=== PATIENT | female | born 1945 ===

== ENCOUNTER → 2020-10-30 08:19 | Outpatient (REF) | payer MEDICARE, SELFPAY ==
--- NOTE | 2020-10-30 | NM_ITS ---
Exercise Myocardial perfusion study Indication: Shortness of breath to evaluate for myocardial ischemia Technique: The patient was brought in for an exercise perfusion study on 10/30/2020. Patient performed exercise as per Wallace protocol and was injected 35 mCi of sestamibi was given intravenously one target HR was achieved. Images were obtained using the SPECT gamma camera interlaced with the gating device. Images were obtained in supine position. Resting perfusion study was performed on 11/01/2020. Patient was administered 35 mCi of sestamibi intravenously at rest. Images were then obtained in supine position. Images obtained with and without CT attenuation. Total DLP 105 mGy-cm. Images were processed with the software and compared side to side in short axis, horizontal long axis and vertical long axis views. Findings: The stress perfusion study showed non attenuated images show mildly reduced uptake in the inferolateral and lateral as well as moderately reduced uptake in the distal anterior and apex of the LV myocardium. Attenuation corrected images show mildly to moderately reduced uptake in the apex and mildly reduced uptake in the distal inferolateral wall of the LV myocardium.. The gated study shows normal LV systolic function with calculated LVEF of greater than 70 %. LV cavity is normal in size. The gated study shows normal systolic wall thickening and contraction of all segments. There is no transient ischemic dilation. Resting study shows non attenuated images show minimal thinning of the apex of the LV myocardium.. Gating at rest reveals normal systolic wall motion with ejection fraction at greater than 70 %. The findings are consistent with mild intensity apical and distal inferolateral wall reversible defect consistent with ischemia.. NM/NM jaycob perf SPECT rest & str Impression: 1. Apical and distal inferolateral ischemia 2. Gated LVEF is greater than 70% 3. Transient ischemic dilatation not present Stress EKG is equivocal for ischemia
--- NOTE | 2020-10-30 08:30 | CA_ITS ---
Acquisition Time: 2020-10-30 09:36:46 Total Exercise Time: 00:06:28 Test Indications: SOB, HTN Medications: SEE CHART Protocol: JANICE Max HR: 125 BPM 86% of Pred: 145 BPM Max BP: 144/068 mmHG Max Work Load: 7.4 METS Exercise stress nuclear using Janice protocol, second stage held and manually incline cand speed changed. Total of 6 min 28 sec. METS 7.4, MAPHR up to 86 %. Pt tolerated well, denies any CP, some SOB. EKG with occasional PVC's. Mild scooped ST depressions seen in leads 2, 3, aVF and V5 and V6. suggestive of possible ischemia inferiorly and laterally, that normalizes in recovery. Nuclear images to follow. Normotensive response to exercise . Test reviewed with Dr. Chau. Referred By: Charles Jade Overread By: Clifton Paulson
== END ==
LOC: HO.CARD 08:19
PROVIDERS: Absent Provider Internal Medicine Cardiovascular Disease; PCP Internal Medicine; Visit Provider Internal Medicine
DX: R07.9 Chest pain, unspecified (principal); R06.02 Shortness of breath
CPT/HCPCS: 78452; 93017; A9500; J2785

== ENCOUNTER 2020-11-07 11:18 | Outpatient (REF) | payer MEDICARE, SELFPAY ==
[2020-11-07 12:36] LABS: Hematocrit 43.3 % (37-47); Hemoglobin 13.7 g/dl (12.0-16.0); Mean Corpuscular HGB Conc 31.6 g/dl (31.0-35.0); Mean Corpuscular Hemoglobin 29.6 pg (27.0-33.0); Mean Corpuscular Volume 93.5 fL (80-98); Platelet Count 261 X10*3/uL (160-400); Red Blood Count 4.63 X10*6/uL (4.20-5.50); Red Cell Distribution Width 13.7 % (11.0-16.0); White Blood Count 7.1 X10*3/uL (4.8-10.8)
[2020-11-07 12:47] LABS: INTERNATIONAL NORM RATIO 1.1 (0.9-1.1); Prothrombin Time 12.8 SEC (10.8-13.0)
[2020-11-07 13:17] LABS: Anion Gap 11 (12-20); Blood Urea Nitrogen 25 mg/dL (9-16); Calcium 10.2 mg/dL (8.4-10.2); Carbon Dioxide 35 mmol/L (22-29); Chloride 101 mmol/L (96-108); Estimated Glomerular Filt Rate 59; Potassium 4.1 mmol/l (3.3-5.1); Sodium 143 mmol/L (135-145)
[2020-11-07 13:37] LABS: Glucose Random 58 mg/dL (60-115)
== END 2020-11-07 11:19 | disposition home or self-care (01) ==
LOC: HO.LAB 11:18
PROVIDERS: PCP Internal Medicine; Visit Provider Internal Medicine Cardiovascular Disease
DX: R94.39 Abnormal result of other cardiovascular function study (principal)
CPT/HCPCS: 36415; 80048; 85027; 85610; 99202

== ENCOUNTER → 2020-12-04 10:18 | Outpatient (BNVA) | payer MEDICARE, SELFPAY | PROVIDERS: PCP Internal Medicine; Visit Provider Internal Medicine Cardiovascular Disease | DX: I10 Essential (primary) hypertension (principal) | CPT/HCPCS: 99212 ==

== ENCOUNTER → 2021-04-09 11:01 | Outpatient (BNVA) | payer MEDICARE, SELFPAY | PROVIDERS: PCP Internal Medicine; Visit Provider Internal Medicine Cardiovascular Disease | DX: I20.8 Other forms of angina pectoris (principal); I10 Essential (primary) hypertension; R94.39 Abnormal result of other cardiovascular function study | CPT/HCPCS: 99212 ==

== ENCOUNTER → 2021-08-13 10:07 | Outpatient (BNVA) | payer MEDICARE, SELFPAY | PROVIDERS: Referring Provider Internal Medicine; Visit Provider Internal Medicine Cardiovascular Disease | DX: I10 Essential (primary) hypertension (principal) | CPT/HCPCS: 93005; 99212 ==

== ENCOUNTER 2021-11-03 09:50 | Outpatient (REF) | payer MEDICARE, SELFPAY ==
--- NOTE | ~2021-11-03 | MM_ITS ---
EXAMINATION: MM SCREENING DIGITAL BREAST TOMOSYNTHESIS, BILATERAL CLINICAL INFORMATION: Screening. Asymptomatic. The lifetime risk of breast cancer based on the Tyrer-Cuzick Model is 3%. COMPARISON: Mammography: 07/30/2020, 07/27/2019, 06/17/2018 TECHNIQUE: Digital breast tomosynthesis is performed in both the craniocaudal and mediolateral oblique views along with computer-aided detection (CAD). Synthesized 2D images are generated from the tomosynthesis. FINDINGS: There are scattered areas of fibroglandular density (ACR BI-RADS breast composition Category b). There are no significant masses, abnormal calcifications, or other abnormalities. MM/MM tomosynthesis screening BI IMPRESSION: No mammographic evidence of malignancy. ASSESSMENT: BI-RADS 1: Negative RECOMMENDATION: Routine annual mammography screening. This patient's information was entered into a reminder system with a target due date for their next mammogram.
== END 2021-11-03 09:51 | disposition home or self-care (01) ==
LOC: HO.MAMMO 09:50
PROVIDERS: Absent Provider Obstetrics & Gynecology; PCP Internal Medicine; Visit Provider Internal Medicine
DX: Z12.31 Encounter for screening mammogram for malignant neoplasm of breast (principal)
CPT/HCPCS: 77063; 77067

== ENCOUNTER 2022-04-09 14:43 | Outpatient (REF) | payer MEDICARE, SELFPAY ==
--- NOTE | ~2022-04-09 | XR_ITS ---
EXAMINATION: XR CHEST CLINICAL INFORMATION: Shortness of breath, pneumonia. COMPARISON: None TECHNIQUE: 2 views of the chest were obtained. FINDINGS: No significant abnormality is noted involving the heart, lungs, mediastinum, bony thorax or soft tissues. XR/XR chest 2V IMPRESSION: No acute cardiopulmonary process.
== END 2022-04-09 14:44 | disposition home or self-care (01) ==
LOC: HO.HMGCX 14:43
PROVIDERS: PCP Internal Medicine; Visit Provider Internal Medicine
DX: R06.02 Shortness of breath (principal)
CPT/HCPCS: 71046

== ENCOUNTER 2022-07-13 08:33 | Outpatient (REF) | payer MEDICARE, SELFPAY ==
[2022-07-13 09:13] LABS: Estimated Average Glucose 120 mg/dL; Hemoglobin A1c % 5.8 %
== END 2022-07-13 08:34 | disposition home or self-care (01) ==
LOC: HO.LAB 08:33
PROVIDERS: PCP Internal Medicine; Visit Provider Internal Medicine
DX: E11.9 Type 2 diabetes mellitus without complications (principal)
CPT/HCPCS: 36415; 83036

== ENCOUNTER → 2022-08-26 11:12 | Outpatient (BNVA) | payer MEDICARE, SELFPAY | PROVIDERS: PCP Internal Medicine; Referring Provider Internal Medicine; Visit Provider Internal Medicine Cardiovascular Disease | DX: I10 Essential (primary) hypertension (principal) | CPT/HCPCS: 93005; 99212 ==

== ENCOUNTER 2022-10-29 10:47 | Outpatient (REF) | payer MEDICARE, SELFPAY ==
[2022-10-29 11:00] LABS: MANUAL DIFF FLAG NO
[2022-10-29 11:47] LABS: Hematocrit 39.4 % (37.0-47.0); Hemoglobin 12.2 g/dl (12.0-16.0); Red Blood Count 4.27 X10*6/uL (4.20-5.50); White Blood Count 5.9 X10*3/uL (4.8-10.8)
[2022-10-29 11:48] LABS: Basophils Percent Auto 0.7 % (0-2); Eosinophils Absolute Auto 0.1 X10*3/uL (0.0-0.4); Eosinophils Percent Auto 0.9 % (0-4); Imm Gran Abs Auto 0.05 X10*3/uL (0.00-0.03); Imm Gran Pct Auto 0.9 % (0.0-0.4); Lymphocytes Absolute Auto 1.7 X10*3/uL (1.2-4.9); Lymphocytes Percent Auto 28.1 % (20-40); Mean Corpuscular Hemoglobin 28.6 pg (27.0-33.0); Mean Corpuscular Volume 92.3 fL (80.0-98.0); Mean Platelet Volume 9.6 fL (9.4-12.3); Monocytes Percent Auto 16.3 % (2-11); Neutrophils Absolute Auto 3.1 x10*3/uL (2.0-8.3); Neutrophils Percent Auto 53.1 % (45-73); Platelet Count 238 X10*3/uL (160-400); Red Cell Distribution Width 15.3 % (11.0-16.0)
[2022-10-29 12:03] LABS: Estimated Average Glucose 120 mg/dL; Hemoglobin A1c % 5.8 %
[2022-10-29 13:50] LABS: Folate 15.4 ng/mL (> or = 4.0)
[2022-10-29 14:13] LABS: Thyroid Stimulating Hormone 3.01 uIU/mL (0.32-4.0)
[2022-10-29 14:56] LABS: Alanine Aminotransferase 14 U/L (0-31); Albumin Level 4.3 g/dL (3.5-5.0); Alkaline Phosphatase 92 U/L (39-117); Anion Gap 12 (12-20); Aspartate Amino Transferase 19 U/L (5-31); Bilirubin Total 0.6 mg/dL (0.0-1.0); Blood Urea Nitrogen 16 mg/dL (9-16); Calcium 9.7 mg/dL (8.4-10.2); Carbon Dioxide 33 mmol/L (22-29); Chloride 101 mmol/L (96-108); Cholesterol 185 mg/dL; Estimated Glomerular Filt Rate > 60; Glucose Fasting 64 mg/dL (60-99); HDL Cholesterol 67 mg/dL; LDL Cholesterol Calculated 102 mg/dl; Potassium 4.3 mmol/L (3.3-5.1); Sodium 142 mmol/L (135-145); Total Protein 7.5 g/dL (6.5-8.0); Triglycerides 82 mg/dL
== END 2022-10-29 10:48 | disposition home or self-care (01) ==
LOC: HO.LAB 10:47
PROVIDERS: PCP Internal Medicine; Visit Provider Internal Medicine
DX: R53.83 Other fatigue (principal); E11.9 Type 2 diabetes mellitus without complications; E78.5 Hyperlipidemia, unspecified
CPT/HCPCS: 36415; 80053; 80061; 82746; 83036; 84443; 85025

== ENCOUNTER 2023-04-15 06:43 | Outpatient (REF) | payer MEDICARE, SELFPAY ==
[2023-04-15 07:43] LABS: Estimated Average Glucose 114 mg/dL; Hemoglobin A1c % 5.6 %
== END 2023-04-15 06:44 | disposition home or self-care (01) ==
LOC: HO.LAB 06:43
PROVIDERS: PCP Internal Medicine; Visit Provider Internal Medicine
DX: E11.9 Type 2 diabetes mellitus without complications (principal); R53.83 Other fatigue; Z79.4 Long term (current) use of insulin
CPT/HCPCS: 36415; 83036

== ENCOUNTER 2023-04-19 09:08 | Outpatient (REF) | payer MEDICARE, SELFPAY ==
--- NOTE | ~2023-04-19 | MM_ITS ---
EXAMINATION: MM SCREENING DIGITAL BREAST TOMOSYNTHESIS, BILATERAL CLINICAL INFORMATION: Screening. Asymptomatic. The lifetime risk of breast cancer based on the Tyrer-Cuzick Model is 3%. COMPARISON: Mammography: 11/03/2021, 07/30/2020, 07/27/2019 TECHNIQUE: Digital breast tomosynthesis is performed in both the craniocaudal and mediolateral oblique views along with computer-aided detection (CAD). Synthesized 2D images are generated from the tomosynthesis. FINDINGS: There are scattered areas of fibroglandular density (ACR BI-RADS breast composition Category b). There are no significant masses, abnormal calcifications, or other abnormalities. Parenchymal pattern is similar to prior studies. There is no developing density or architectural abnormality. The axilla and skin contours are unremarkable. No significant changes. MM/MM tomosynthesis screening BI IMPRESSION: No mammographic evidence of malignancy. ASSESSMENT: BI-RADS 1: Negative RECOMMENDATION: Routine annual mammography screening. This patient's information was entered into a reminder system with a target due date for their next mammogram.
== END 2023-04-19 09:09 | disposition home or self-care (01) ==
LOC: HO.MAMMO 09:08
PROVIDERS: PCP Internal Medicine; Visit Provider Internal Medicine
DX: Z12.31 Encounter for screening mammogram for malignant neoplasm of breast (principal)
CPT/HCPCS: 77063; 77067

== ENCOUNTER → 2023-04-22 13:27 | Outpatient (BNVA) | payer MEDICARE, SELFPAY | PROVIDERS: PCP Internal Medicine; Referring Provider Internal Medicine; Visit Provider Nurse Practitioner Family | DX: I25.10 Atherosclerotic heart disease of native coronary artery without angina pectoris (principal); I10 Essential (primary) hypertension; E78.5 Hyperlipidemia, unspecified; Z98.890 Other specified postprocedural states | CPT/HCPCS: 93005; 99212 ==

== ENCOUNTER 2023-05-11 13:58 | Outpatient (REF) | payer MEDICARE, SELFPAY ==
--- NOTE | ~2023-05-11 | MM_ITS ---
EXAMINATION: BONE DENSITOMETRY CLINICAL INDICATION: Postmenopausal. COMPARISON: Baseline BD dated 07/06/2008. TECHNIQUE: Using a [employer] DXA System (software version: 13.1) manufactured by [employer] dual-energy x-ray absorptiometry was performed of the lumbar spine and left hip. The images are of good technical quality. Summary results are attached. FINDINGS: LEFT FEMUR, NECK: Current: BMD 1.070 g/cm2, Z-score 1.5, T-score 0.2, normal. Baseline: BMD 1.127 g/cm2. LEFT FEMUR, TOTAL: Current: BMD 1.288 g/cm2, Z-score 3.3, T-score 2.2, normal, 1.1% increase from baseline (<5% change is not significant). Baseline: BMD 1.274 g/cm2. AP SPINE L1-L4: There are multilevel degenerative changes which may cause overestimation of the lumbar bone mineral density. Current: BMD 1.765 g/cm2, Z-score 5.5, T-score 4.9, normal, 21.7% increase from baseline (<5% change is not significant). Baseline: BMD 1.450 g/cm2. IDENTIFIED RISK FACTORS: Height loss, menopause. HISTORY OF FRACTURE: None listed. MEDICATIONS: None listed. MM/XR DEXA axial skeleton IMPRESSION: 1. DIAGNOSIS: Normal bone density based on the lowest T-score value of 0.2 in the femoral neck applying World Health Organization criteria. 2. 10-YEAR FRACTURE RISK PREDICTION, FRAX: According to the guidelines, FRAX calculation should only be performed on patients in the osteopenia bone density category. Therefore, FRAX was not performed on this patient. 3. Treatment Recommendations: NOF guidelines recommend consideration for treatment in postmenopausal women and men age 50 and older presenting with the following: -A hip or vertebral (clinical or morphometric) fracture. -T-score less than or equal to -2.5 at the femoral neck or spine after appropriate evaluation to exclude secondary causes. -Low bone mass at the hip or spine and a 10-year fracture probability by FRAX of greater than or equal to 3% for hip fracture or greater than or equal to 20% for major osteoporotic fracture based on the [place] adapted WHO algorithm. 4. Other Recommendations: All treatment decisions require clinical judgment and consideration of individual patient factors, including patient preferences, comorbidities, previous drug use, risk factors not captured in the FRAX model (e.g. frailty, falls, vitamin D deficiency, increased bone turnover, interval significant decline in bone density) and possible under or overestimation of fracture risk by FRAX. FUTURE SCAN RECOMMENDATION: People with diagnosed cases of osteoporosis or at high risk for fracture should have regular bone mineral density tests. For patients eligible for Medicare, routine testing is allowed once every 2 years. The testing frequency can be increased to one year for patients who have rapidly progressing disease, those who are receiving or discontinuing medical therapy to restore bone mass, or have additional risk factors.
== END 2023-05-11 13:59 | disposition home or self-care (01) ==
LOC: HO.MAMMO 13:58
PROVIDERS: PCP Internal Medicine; Visit Provider Obstetrics & Gynecology
DX: Z13.820 Encounter for screening for osteoporosis (principal); Z78.0 Asymptomatic menopausal state
CPT/HCPCS: 77080

== ENCOUNTER 2023-07-30 08:08 | Outpatient (REF) | payer MEDICARE, SELFPAY ==
[2023-07-30 09:27] LABS: Estimated Average Glucose 126 mg/dL
== END 2023-07-30 08:09 | disposition home or self-care (01) ==
LOC: HO.LAB 08:08
PROVIDERS: PCP Internal Medicine; Visit Provider Internal Medicine
DX: E11.9 Type 2 diabetes mellitus without complications (principal)
CPT/HCPCS: 36415; 83036

== ENCOUNTER 2023-08-03 15:12 | Outpatient (REF) | payer MEDICARE, SELFPAY ==
--- NOTE | ~2023-08-03 | XR_ITS ---
EXAMINATION: XR KNEE AP STANDING CLINICAL INFORMATION: Bilateral knee pain COMPARISON: None available. TECHNIQUE: AP bilateral standing view of the knees was obtained. Lateral views of bilateral knees. FINDINGS: Right knee: No significant joint effusion. Small quadriceps enthesophyte. Mild medial joint space narrowing. Small tricompartmental osteophytes. Left knee: No significant joint effusion. Moderate to marked medial joint space narrowing. Small tricompartmental osteophytes. 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
== END 2023-08-03 15:13 | disposition home or self-care (01) ==
LOC: HO.HMGCX 15:12
PROVIDERS: PCP Internal Medicine; Visit Provider Internal Medicine
DX: R53.83 Other fatigue (principal); M25.561 Pain in right knee; M25.562 Pain in left knee; E03.9 Hypothyroidism, unspecified; R63.5 Abnormal weight gain; M79.18 Myalgia, other site
CPT/HCPCS: 36415; 73565; 82306

== ENCOUNTER 2023-10-18 08:05 | Outpatient (REF) | payer MEDICARE, SELFPAY ==
[2023-10-18 08:21] LABS: MANUAL DIFF FLAG NO
[2023-10-18 08:37] LABS: Basophils Percent Auto 0.3 % (0-2); Eosinophils Absolute Auto 0.1 X10*3/uL (0.0-0.4); Eosinophils Percent Auto 1.7 % (0-4); Hematocrit 39.3 % (37.0-47.0); Hemoglobin 12.2 g/dl (12.0-16.0); Imm Gran Abs Auto 0.03 X10*3/uL (0.00-0.03); Imm Gran Pct Auto 0.5 % (0.0-0.4); Lymphocytes Absolute Auto 1.5 X10*3/uL (1.2-4.9); Lymphocytes Percent Auto 25.6 % (20-40); Mean Corpuscular Hemoglobin 28.7 pg (27.0-33.0); Mean Corpuscular Volume 92.5 fL (80.0-98.0); Mean Platelet Volume 9.7 fL (9.4-12.3); Monocytes Absolute Auto 1.1 X10*3/uL (0.1-1.2); Monocytes Percent Auto 18.1 % (2-11); Neutrophils Absolute Auto 3.1 x10*3/uL (2.0-8.3); Neutrophils Percent Auto 53.8 % (45-73); Platelet Count 239 X10*3/uL (160-400); Red Blood Count 4.25 X10*6/uL (4.20-5.50); White Blood Count 5.8 X10*3/uL (4.8-10.8)
[2023-10-18 09:19] LABS: Alanine Aminotransferase 12 U/L (0-31); Albumin Level 4.2 g/dL (3.5-5.0); Alkaline Phosphatase 89 U/L (39-117); Anion Gap 14 (12-20); Aspartate Amino Transferase 18 U/L (5-31); Bilirubin Total 0.5 mg/dL (0.0-1.0); Blood Urea Nitrogen 17 mg/dL (9-16); Calcium 9.9 mg/dL (8.4-10.2); Carbon Dioxide 31 mmol/L (22-29); Chloride 103 mmol/L (96-108); Cholesterol 166 mg/dL (<200); Estimated Glomerular Filt Rate > 60; Glucose Fasting 115 mg/dL (60-99); HDL Cholesterol 60 mg/dL (>40); LDL Cholesterol Calculated 91 mg/dL (<100); Potassium 4.6 mmol/L (3.3-5.1); Sodium 143 mmol/L (135-145); Total Protein 7.7 g/dL (6.5-8.0); Triglycerides 77 mg/dL (<150)
[2023-10-18 09:28] LABS: Thyroid Stimulating Hormone 4.33 uIU/mL (0.32-4.0)
== END 2023-10-18 08:06 | disposition home or self-care (01) ==
LOC: HO.LAB 08:05
PROVIDERS: PCP Internal Medicine; Visit Provider Internal Medicine
DX: R53.83 Other fatigue (principal); E78.5 Hyperlipidemia, unspecified; E11.9 Type 2 diabetes mellitus without complications
CPT/HCPCS: 36415; 80053; 80061; 84439; 84443; 85025

== ENCOUNTER 2023-11-02 11:37 | Outpatient (REF) | payer MEDICARE, SELFPAY ==
[2023-11-02 12:32] LABS: Estimated Average Glucose 134 mg/dL; Hemoglobin A1c % 6.3 % (<6.0)
== END 2023-11-02 11:38 | disposition home or self-care (01) ==
LOC: HO.LAB 11:37
PROVIDERS: PCP Internal Medicine; Visit Provider Internal Medicine
DX: E11.9 Type 2 diabetes mellitus without complications (principal)
CPT/HCPCS: 36415; 83036

== ENCOUNTER 2024-04-20 09:24 | Outpatient (REF) | payer MEDICARE, SELFPAY ==
[2024-04-20 10:23] LABS: Estimated Average Glucose 123 mg/dL; Hemoglobin A1c % 5.9 % (<6.0)
== END 2024-04-20 09:25 | disposition home or self-care (01) ==
LOC: HO.MAMMO 09:24
PROVIDERS: PCP Internal Medicine; Visit Provider Internal Medicine
DX: Z12.31 Encounter for screening mammogram for malignant neoplasm of breast (principal); E11.9 Type 2 diabetes mellitus without complications
CPT/HCPCS: 36415; 77063; 77067; 83036

== ENCOUNTER → 2024-04-20 10:00 | Outpatient (BNV) | payer MEDICARE, SELFPAY | PROVIDERS: PCP Internal Medicine; Visit Provider Radiology Diagnostic Radiology | DX: Z12.31 Encounter for screening mammogram for malignant neoplasm of breast (principal) | CPT/HCPCS: 77063; 77067 ==

== ENCOUNTER 2024-04-24 13:59 | Outpatient (AMB) | payer MEDICARE, SELFPAY ==
[2024-04-24 14:04] VITALS: BP 120/64; PULSE 82; BMI 46.1
--- NOTE | 2024-04-24 14:04 | A.OFFVIS_ITS ---
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 She was seen for chest discomfort, shortness of breath and abnormal nuclear stress test. Cardiac catheterization was performed on 11/22/2020 from the right radial artery access. She had mid LAD 30% stenosis at proximal RCA had 30% stenosis. Her LVEDP was normal. She has elevated BP and she was advised to increase her amlodipine to 5 mg. She said she was getting dizzy and decided to cut back on her amlodipine to 2.5 mg daily. on follow-up today, Blood pressure control is good. She is denying any chest discomfort. She has shortness of breath and fatigue which happen with activity. I think this is deconditioning. 04/24/2024: She returns for follow-up. Blood pressure is well controlled. No chest pains. She again is complaining of fatigue. She is saying that with minimal tired and fatigued. We discussed about sleep study last time but it appears she has not done sleep study. [facility] Medical History (Updated 04/24/24 @ 14:26 by Hermes Fine MD) Abnormal stress test Surgical History History of cardiac cath H/O knee surgery Family History Mother No problems noted. Father No problems noted. Social History Alcohol intake: current Alcohol intake frequency: holidays/special occasions only Patient Tobacco Use Status: Never used Tobacco Review of Systems Const Denies chills, Denies fatigue, Denies fever(s), Denies frequent falls, Denies weakness, Denies weight gain and Denies weight loss ENT Denies dizziness Card Denies chest pain, Denies leg edema, Denies lightheadedness, Denies palpitations, Denies dyspnea and Denies dyspnea on exertion Resp Denies cough, Denies dyspnea and Denies dyspnea on exertion GI Denies hematochezia Musc Denies abnormal gait, Denies muscle weakness, Denies numbness, Denies radiating pain into limb and Denies tingling Neuro Denies abnormal gait, Denies dizziness, Denies frequent falls, Denies numbness, Denies tingling and Denies weakness Endo Denies fatigue and Denies palpitations Physical Exam Vital Signs: BMI result Body Mass Index 46.1 GENERAL APPEARANCE: in no acute distress, overweight. NECK/THYROID: no carotid bruit, no jugular venous distention. SKIN: no suspicious lesions, warm and dry. HEART: no murmurs, regular rate and rhythm, S1, S2 normal. LUNGS: clear to auscultation bilaterally. ABDOMEN: normal, bowel sounds present, soft, nontender, nondistended. EXTREMITIES: no clubbing, cyanosis, or edema. PERIPHERAL PULSES: equal. NEUROLOGIC: nonfocal, alert and oriented. PSYCH: mood/affect full range. Office Procedures EKG Details: Sinus rhythm with first-degree AV block, heart rate 82 beats per minute interval 212 milliseconds, can not rule out anterior infarctw voltage, QTC 418 m illiseconds. [id number], Complete Assessment & Plan Assessment & Plan (1) Hypertension: Code(s): I10 - Essential (primary) hypertension Category: Medical (2) Coronary atherosclerosis: Code(s): I25.10 - Atherosclerotic heart disease of eek coronary artery without angina pectoris Category: Medical (3) Sleep disorder breathing: Code(s): G47.30 - Sleep apnea, unspecified Category: Medical Plan Pleasant 78-year-old female who is here forollow-up. She has background of hypertension. Blood pressure is well controlled currently on amlodipine 2.5 mg and triamterene-hydrochlorothiazide combination. She has mild coronary artery disease based on previous cardiac catheterization. She is complaining of fatigue and shortness of breath. I have discussed with her to do a sleep study to rule out sleep apnea. We will arrange this for her. Thank you for allowing me to participate in the care of your patient. Please feel free to contact me if you have any questions. Orders: Orders RT PSG in-lab sleep study Today Coding Level of Care Code Est Pt Level 4 (54960) Diagnoses Hypertension I10 Coronary atherosclerosis I25.10 Sleep disorder breathing G47.30 CPT Codes EKG - CPT: 91865-[id number], Complete ([id number])
== END 2024-04-24 14:28 | disposition home or self-care (01) ==
PROVIDERS: PCP Internal Medicine; Visit Provider Internal Medicine Cardiovascular Disease
DX: I10 Essential (primary) hypertension (principal); I25.10 Atherosclerotic heart disease of native coronary artery without angina pectoris; G47.30 Sleep apnea, unspecified
CPT/HCPCS: 93010; 99214

== ENCOUNTER → 2024-04-24 13:59 | Outpatient (BNVA) | payer MEDICARE, SELFPAY | PROVIDERS: PCP Internal Medicine; Visit Provider Internal Medicine Cardiovascular Disease | DX: I25.10 Atherosclerotic heart disease of native coronary artery without angina pectoris (principal); I10 Essential (primary) hypertension; G47.30 Sleep apnea, unspecified | CPT/HCPCS: 93005; 99212 ==

== ENCOUNTER → 2024-05-01 19:30 | Outpatient (REF) | payer MEDICARE, SELFPAY | LOC: HO.SL 19:30 | PROVIDERS: PCP Internal Medicine; Visit Provider Internal Medicine Cardiovascular Disease | DX: G47.30 Sleep apnea, unspecified (principal) | CPT/HCPCS: 95810 ==

== ENCOUNTER → 2024-05-01 22:42 | Outpatient (BNV) | payer MEDICARE, SELFPAY | PROVIDERS: PCP Internal Medicine; Visit Provider Psychiatry & Neurology Neurology | DX: R06.83 Snoring (principal) | CPT/HCPCS: 95810 ==

== ENCOUNTER 2024-08-08 07:29 | Outpatient (REF) | payer MEDICARE, SELFPAY ==
[2024-08-08 08:36] LABS: Estimated Average Glucose 120 mg/dL; Hemoglobin A1C 120.7202 umol/L; Hemoglobin A1c % 5.8 % (<6.0); Total Hemoglobin (HGBA1C) 3010.2274 umol/L
== END 2024-08-08 07:30 | disposition home or self-care (01) ==
LOC: HO.LAB 07:29
PROVIDERS: PCP Internal Medicine; Visit Provider Internal Medicine
DX: E11.9 Type 2 diabetes mellitus without complications (principal)
CPT/HCPCS: 36415; 83036

== ENCOUNTER → 2024-10-02 11:05 | Outpatient (BNVA) | payer MEDICARE, SELFPAY | PROVIDERS: PCP Internal Medicine; Visit Provider Internal Medicine Cardiovascular Disease | DX: I10 Essential (primary) hypertension (principal); R06.00 Dyspnea, unspecified | CPT/HCPCS: 99212 ==

== ENCOUNTER 2024-10-02 11:08 | Outpatient (AMB) | payer MEDICARE, SELFPAY ==
[2024-10-02 11:08] VITALS: BP 130/62; PULSE 92; BMI 46.5
--- NOTE | 2024-10-02 11:08 | MHC.OFFVIS ---
Vital Signs 10/02/24 11:08 Height 5 ft 2 in Weight 254 lb 6.615 oz BMI 46.5 BP 130/62 Blood Pressure Location Lt brachial Position Sitting Pulse 92 Pulse Source Pulse Oximeter Intake Visit Reasons: 6 mthf/up Intake Note: 6 mth f/up Disability Services Coordinator Required: No Accompanied by: Self / Same As Patient Allergies Amoxicillin Allergy (Unknown, Uncoded 04/22/23 13:33) rash Medication List - Last Reconciled 10/02/24 by Hermes Fine MD amlodipine 2.5 mg PO DAILY aspirin (Adult Aspirin Regimen) 81 mg PO DAILY atorvastatin 40 mg PO DAILY cyclosporine 0.05% (Restasis) 1 drp ophthalmic (eye) BID glipizide 5 mg PO BID levothyroxine 100 mcg PO DAILY metformin 500 mg PO BID pioglitazone 30 mg PO DAILY triamterene-hydrochlorothiazid 37.5-25 mg 1 cap PO DAILY HPI Comments Details: 78-year-old female here for follow-up. She was seen for chest discomfort, shortness of breath and abnormal nuclear stress test. Cardiac catheterization was performed on 11/22/2020 from the right radial artery access. She had mid LAD 30% stenosis at proximal RCA had 30% stenosis. Her LVEDP was normal. She has elevated BP and she was advised to increase her amlodipine to 5 mg. She said she was getting dizzy and decided to cut back on her amlodipine to 2.5 mg daily. on follow-up today, Blood pressure control is good. She is denying any chest discomfort. She has shortness of breath and fatigue which happen with activity. I think this is deconditioning. 04/24/2024: She returns for follow-up. Blood pressure is well controlled. No chest pains. She again is complaining of fatigue. She is saying that with minimal tired and fatigued. We discussed about sleep study last time but it appears she has not done sleep study. 10/02/2024: She is here for follow-up. She has been prescribed Ozempic by her primary care physician. She has not started it yet. She is saying there was a long side effect profile that she read. We discussed about weight loss and beneficial effects for her being a diabetic and having significant dyspnea and fatigue. [facility] Medical History (Updated 10/02/24 @ 11:27 by Hermes Fine MD) Abnormal stress test Surgical History History of cardiac cath H/O knee surgery Family History Mother No problems noted. Father No problems noted. Social History Alcohol intake: current Alcohol intake frequency: holidays/special occasions only Patient Tobacco Use Status: Never used Tobacco Review of Systems Const Denies chills, Denies fatigue, Denies fever(s), Denies frequent falls, Denies weakness, Denies weight gain and Denies weight loss ENT Denies dizziness Card Denies chest pain, Denies leg edema, Denies lightheadedness, Denies palpitations, Denies dyspnea and Denies dyspnea on exertion Resp Denies cough, Denies dyspnea and Denies dyspnea on exertion GI Denies hematochezia Musc Denies abnormal gait, Denies muscle weakness, Denies numbness, Denies radiating pain into limb and Denies tingling Neuro Denies abnormal gait, Denies dizziness, Denies frequent falls, Denies numbness, Denies tingling and Denies weakness Endo Denies fatigue and Denies palpitations Physical Exam Vital Signs: Last Vital Signs Pulse 92 10/02/24 11:08 BP 130/62 10/02/24 11:08 BMI result Body Mass Index 46.5 GENERAL APPEARANCE: in no acute distress, obese. NECK/THYROID: no carotid bruit, no jugular venous distention. SKIN: no suspicious lesions, warm and dry. HEART: no murmurs, regular rate and rhythm, S1, S2 normal. LUNGS: clear to auscultation bilaterally. ABDOMEN: normal, bowel sounds present, soft, nontender, nondistended. EXTREMITIES: no clubbing, cyanosis, or edema. PERIPHERAL PULSES: equal. NEUROLOGIC: nonfocal, alert and oriented. PSYCH: mood/affect full range. Assessment & Plan Assessment & Plan (1) Hypertension: Code(s): I10 - Essential (primary) hypertension Category: Medical (2) Dyspnea: Code(s): R06.00 - Dyspnea, unspecified Category: Medical Plan Pleasant 78 year female who is here for follow-up. Blood pressure is well controlled currently. She will continue same medicines. She has dyspnea which is multifactorial. Definitely deconditioning and being overweight is playing a big role in that. She has been prescribed Ozempic by her primary care physician. I have advised her to try it because if she loses some weight that will definitely help her dyspnea and fatigue. Ozempic also has some long-term beneficial cardiovascular effects which are being observed in clinical trials. She will see us back in 6 months. Thank you for allowing me to participate in the care of your patient. Please feel free to contact me if you have any questions. Coding Level of Care Code Est Pt Level 4 (13078) Diagnoses Hypertension I10 Dyspnea R06.00
== END 2024-10-02 11:29 | disposition home or self-care (01) ==
PROVIDERS: PCP Internal Medicine; Visit Provider Internal Medicine Cardiovascular Disease
DX: I10 Essential (primary) hypertension (principal); R06.00 Dyspnea, unspecified
CPT/HCPCS: 99214

== ENCOUNTER 2025-03-07 07:39 | Outpatient (REF) | payer MEDICARE, SELFPAY ==
--- OUTSIDE RECORDS SUMMARY | 2025-03-07 07:43 | XMS_ITS ---
Author Organization [facility] Address [address] [place] [address] [place] [address] Care Team Providers Care Switchboard Troubleshooter Name Role Phone Yasmany PAZ, Charles Primary Care Provider Unavailab Bessie Pro Unavailable [phone] Encounters Encounter Location Date Provider Diagnosis [facility] [address] [place] [address] 02/26/2025 Bessie More Plan Of Treatment Next Appt Details Provider Name:Bessie capone, 04/06/2025 02:00:00 PM, [address] [facility], [address] [facility], [place], [address], Progress Notes * Pamela CRONIN CDOB:[birth year] (79 yo F)Acc No.[id number]:02/26/2025 Progress Note Patient:Pamela NOWAK Provider:?Bessie Moer DPM :1945???Age:79 Y???Sex:Female D ate:02/26/2025 Address:[address] [place], [place] [id number] Pcp:Charles Jade MD Subjective: * Chief Complaints: * ??? * Medical History:? Objective: * Vitals:? Assessment: Plan: * Treatment: * Images: * The named appointment provid er may or may not be the originator of this progress note, and it is not deemed complete until electronically signed by the appointment provider. Sign off status: Pending * Provider:?Bessie More DPM Date:?0 02/26/2025 Generated for Jurgen ramsey/Valorie/Lotusitting on:?03/07/2025 07:43 AM EDT
--- OUTSIDE RECORDS SUMMARY | 2025-03-07 07:43 | XMS_ITS | Patient Health Record ---
[facility] Address [address] [facility] [place] [address] Care Team Providers Care Assembler Body Name Role Phone Cahrles Jade MD Primary Care Provider Unavailab Bessie Pro Unavailable [phone] SantosClaytonDenny Unavailable [phone] Allergies Allergen (clinical drug ingredient) Drug/Non Drug Allergy documented on EMR Reaction Allergy Type Onset Date Status amoxicillin Amoxicillin rash Drug Allergy Act brandon Results Component Value Reference Range Notes HEMOGLOBIN A1C (GLYCOHEMOGLO BIN) Reviewed date:09/07/2024 12:35:55 PM Interpretation: Performing Lab: Notes/Report: TOTAL HEMOGLOBIN (HGBA1C) 5.1 Reason For Referral No Information Medications Medication SIG (Take, Route, Frequency, Duration) Notes Start Date End Date Status Pioglitazone HCl Act brandon Travatan Z 0.004 % INSTILL ONE DROP IN BOTH EYES DAILY Ophthalmic for 90 Not-Taking Clindamycin HCl 150 MG 2 capsules Orally every 8 hrs for 5 day(s) 04/19/2018 Not-Taking Timolol Hemihydrate Not-Taking Extra-Depth Diabetic Shoes with 3 Pair Custom heat-molded multi-density innersoles . for 1 year . Dx: for . 04/04/2015 Unkno wn Levothyroxine Sodium 75 MCG 1 tablet on an empty stomach in the morning Orally Once a day for 30 day(s) Active glipiZIDE Active Atorvastatin Calcium 40 MG 1 tablet Oral ly Once a day for 30 day(s) Active aspirin baby Active Triamterene-HCTZ 37.5-25 MG 1 capsule in the morning Orally Once a day for 30 day(s) Active Restasis Active Metformin & Diet Manage Prod Active Immunizations Vaccine Route Administration Date Status Comme nts COVID-19 Moderna Vaccine Unknown 01/23/2021 Administere d 1st 12/27/2020 Influenza Unknown 11/05/2017 Refused Influenza Unknown 08/04/2018 Refused Influenza Unknown 07/08/2020 Refused Influenza Unknown 07/16/2022 Administered Influenza Unknown 07/16/2023 Administered Social History Tobacco Use: Social History Observation Description Date Details (start date - stop date) Former Smoker NA - NA Tobacco Use/Smoking Question Answer Notes Are you a: former smoker Additional Findings: Tobacco Non-User Current no n-smoker Alcohol Screen Question Answer Notes Did you have a drink containing alcohol in the p ast year? No Points 0 Interpretation Negative Tobacco use other than smoking: Question Answer Notes Are you an other tobacco user? No Problems Problem Type SNOMED Code ICD Code Onset Dates Problem Status W/U Status Risk Notes Problem Tinea unguium (524636695) Tinea unguium (B35.1) Active confirmed Problem Polyneuropathy due to type 2 diabetes mellitus (595292345) Type 2 diabetes mellitus with diabetic polyneuropathy (E11.42) Active confirmed Problem Peripheral venous insufficiency (60299994) Venous insufficiency of both lower extremities (I87.2) Active confirmed Problem 32179027 Venous insufficiency (I87.2) Active confirmed Problem 736664795 -Arthritis of right foot (M19.071) Active confirmed Vital Signs Blood pressure diastolic 80 mm Hg 05/22/2024 Height 5 ft 3 in in 09/07/2024 Blood pressure systolic 120 mm Hg 05/22/2024 Weight 249 lbs 09/07/2024 BMI 44.1 kg/m2 09/07/2024 Encounters Encounter Location Date Provider Diagnosis [facility] [address] [address] 05/22/2024 Denny Graham Tinea unguium B35.1 ; Pain in right toe(s) M79.674 ; Pain in left toe(s) M79.675 ; Type 2 diabetes mellitus with diabetic polyneuropathy E11.42 ; Metatarsalgia, left foot M77.42 ; Xerosis cutis L85.3 ; Venous insufficiency I87.2 ; Venous insufficiency of both lower extremities I87.2 and Ingrowing nail L60.[address] [facility] [address] 09/07/2024 Denny Graham Tinea unguium B35.1 ; Pain in right toe(s) M79.674 ; Pain in left toe(s) M79.675 ; Type 2 diabetes mellitus with diabetic polyneuropathy E11.42 ; Metatarsalgia, left foot M77.42 ; Xerosis cutis L85.3 ; Venous insufficiency I87.2 ; Venous insufficiency of both lower extremities I87.2 and Ingrowing nail L60.0 [facility] [address] [address] 05/22/2024 Denny Graham [facility] [address] 02/22/2025 Bessie More Assessments Encounter Date Diagnosis (ICD Code) Assessment Notes Treatment Notes Treatment Clinical Notes Section Notes 05/22/2024 Tinea unguium (ICD-10 - B35.1) 05/22/2024 Pain in right toe(s) (ICD-10 - M79.674) 09/07/2024 Tinea unguium (ICD-10 - B35.1) 09/07/2024 Pain in right toe(s) (ICD-10 - M79.674) 05/22/2024 Pain in left toe(s) (ICD-10 - M79.675) 09/07/2024 Pain in left toe(s) (ICD-10 - M79.675) 05/22/2024 Type 2 diabetes mellitus with diabetic polyneuropathy (ICD-10 - E11.42) 09/07/2024 Type 2 diabetes mellitus with diabetic polyneuropathy (ICD-10 - E11.42) 05/22/2024 Metatarsalgia, left foot (ICD-10 - M77.42) 05/22/2024 Xerosis cutis (ICD-10 - L85.3) 09/07/2024 Metatarsalgia, left foot (ICD-10 - M77.42) 05/22/2024 Venous insufficiency (ICD-10 - I87.2) 09/07/2024 Xerosis cutis (ICD-10 - L85.3) 05/22/2024 Venous insufficiency of both lower extremities (ICD-10 - I87.2) 09/07/2024 Venous insufficiency (ICD-10 - I87.2) 09/07/2024 Venous insufficiency of both lower extremities (ICD-10 - I87.2) 05/22/2024 Ingrowing nail (ICD-10 - L60.0) 09/07/2024 Ingrowing nail (ICD-10 - L60.0) Plan Of Treatment Pending Test Test Name Order Date Glucose Fasting 04/04/2015 92369-GKJLJMW NAIL, 6 OR MORE 06/13/2015 03914-OBKBEWW NAIL, 6 OR MORE 04/04/2015 67903-THNAUNQ NAIL, 6 OR MORE 08/15/2015 05855-ZLCYTLL NAIL, 6 OR MORE 11/05/2015 47188-CAKNZYM NAIL, 6 OR MORE 02/24/2016 10472-LDUDHTU NAIL, 6 OR MORE 05/04/2016 52709-MFWDPMB NAIL, 6 OR MORE 08/05/2016 59289-VRJQNRQ NAIL, 6 OR MORE 02/23/2017 84559-AIAUYHP NAIL, 6 OR MORE 11/03/2016 65347-SRLPCHZ NAIL, 6 OR MORE 05/28/2017 20758-EEHXRSZ NAIL, 6 OR MORE 08/20/2017 53365-ZCNQTVC NAIL, 6 OR MORE 11/05/2017 51650-LBAXWMT NAIL, 6 OR MORE 03/07/2018 33555-PANFKKX NAIL, 6 OR MORE 10/31/2018 34041-OXZIRQY NAIL, 6 OR MORE 05/26/2018 91723-XAIZCKS NAIL, 6 OR MORE 08/04/2018 39560-Lwirhvbv Plate 03/07/2018 33204-Yurbmwba Plate 05/28/2017 97412-Evtwbkie Plate 11/05/2017 01310-Dqkxehaw Plate 08/20/2017 86975-Pdgwozav Plate 11/03/2016 02612-Sqtkrpkd Plate 02/23/2017 48402-Riizglbv Plate 08/05/2016 46664-Wopuelbl Plate 05/04/2016 58164-Aklyjvrr Plate 02/24/2016 60794-Efdrxajv Plate 08/15/2015 86159-Xrmxzbjy Plate 09/01/2013 13566-Stlhnasy Plate 06/13/2015 87715-Qkixsesr Plate Each Additional 11/2014 60294- Debride <25 sq cm 04/18/2015 37647- Debride <25 sq cm 09/21/2013 08542 I&D ABSCESS- SIMPLE,SINGLE 015 16390 I&D ABSCESS- SIMPLE,SINGLE 013 09784 I&D ABSCESS- SIMPLE,SINGLE 017 16583-ZTXW SKIN LESIONS, 2 TO 4 11/05/20 17 34196-PRIA SKIN LESIONS, 2 TO 4 11/03/20 16 04689-VHCA SKIN LESIONS, 2 TO 4 08/20/20 17 68317-RRSB SKIN LESIONS, 2 TO 4 05/04/20 16 17701-EIBD SKIN LESIONS, 2 TO 4 08/05/20 16 33515-RFAI SKIN LESIONS, 2 TO 4 02/24/20 17 00710-BDOF SKIN LESIONS, 2 TO 4 05/28/20 17 96102-AOTD SKIN LESIONS, 2 TO 4 08/15/20 15 07669-EVHB SKIN LESIONS, 2 TO 4 02/24/20 16 95214-TQYT SKIN LESIONS, 2 TO 4 11/05/20 15 72877-LLXL SKIN LESIONS, 2 TO 4 04/04/20 15 66729-VJXH SKIN LESIONS, 2 TO 4 06/13/20 15 23051-ZPGP SKIN LESIONS, 2 TO 4 03/07/20 18 57902-WWFZ SKIN LESIONS, 2 TO 4 05/26/20 18 56548-MGVE SKIN LESIONS, 2 TO 4 03/06/20 19 86609-XNRY SKIN LESIONS, 2 TO 4 06/07/20 19 39717-ZOZV SKIN LESIONS, 2 TO 4 09/13/20 19 41693-RZLR SKIN LESIONS, 2 TO 4 04/04/20 20 61892-YQOC SKIN LESIONS, 2 TO 4 07/08/20 20 87648-DHOY SKIN LESIONS, 2 TO 4 10/21/20 20 85801-PXUX SKIN LESIONS, 2 TO 4 03/31/20 21 62888-EFFS SKIN LESIONS, 2 TO 4 07/08/20 21 32563-NPOY SKIN LESIONS, 2 TO 4 10/21/20 21 07603-IUUG SKIN LESIONS, 2 TO 4 10/31/20 18 66897-GCDT SKIN LESIONS, 2 TO 4 08/04/20 18 32234-RJWFTUJN OF HEMATOMA/FLUID 018 Next Appt Details Provider Name:Bessie Zamora estelita, 04/06/2025 02:00:00 PM, [address] [facility], [address], [place], [address], Insurance Providers Payer Name Payer Address Payer Phone Subscriber Number Group Number Insured Name Patient Relationship to Insured Coverage Start Date Coverage End Date Medicare National Govt Sv[employer] [address] [place] [address] [id number] Pamela Cronin Self - patient is the insured 2 [employer] [address] [place] [address] [id number] Moy Cronin Spouse - patient is the spouse of the insured Medical (General) History Medical History History ICD Code chicken pox cholesterol Diabetic type ll high blood pressure measles mumps thyroid disorder Arthritis Surgical History Surgery Date(Month/Year) knee surgery, left 2010 cataract surgery bilateral 2017
--- OUTSIDE RECORDS SUMMARY | 2025-03-07 07:43 | XMS_ITS ---
[facility] Address [address] [facility] [place] [address] Care Team Providers Care Provisioning Analyst Name Role Phone Charles Jade MD Primary Care Provider Unavailab Bessie Pro Unavailable [phone] Denny Graham Unavailable [phone] Allergies Allergen (clinical drug ingredient) Drug/Non Drug Allergy documented on EMR Reaction Allergy Type Onset Date Status amoxicillin Amoxicillin rash Drug Allergy Act brandon REASON FOR VISIT Painful nail(s) aggrevated by shoes and causing difficulty standing/walking. Medications Medication SIG (Take, Route, Frequency, Duration) Notes Start Date End Date Status Pioglitazone HCl Act brandon Levothyroxine Sodium 75 MCG 1 tablet on an empty stomach in the morning Orally Once a day for 30 day(s) Active glipiZIDE Active Atorvastatin Calcium 40 MG 1 tablet Oral ly Once a day for 30 day(s) Active aspirin baby Active Travatan Z 0.004 % INSTILL ONE DROP IN BOTH EYES DAILY Ophthalmic for 90 Not-Taking Clindamycin HCl 150 MG 2 capsules Orally every 8 hrs for 5 day(s) 04/19/2018 Not-Taking Timolol Hemihydrate Not-Taking Extra-Depth Diabetic Shoes with 3 Pair Custom heat-molded multi-density innersoles . for 1 year . Dx: for . 04/04/2015 Unkno wn Triamterene-HCTZ 37.5-25 MG 1 capsule in the morning Orally Once a day for 30 day(s) Active Restasis Active Metformin & Diet Manage Prod Active Social History Tobacco Use: Social History Observation [...] Are you an other tobacco user? No Vital Signs Height 5 ft 3 in in 09/07/2024 Weight 249 lbs 09/07/2024 BMI 44.1 kg/m2 09/07/2024 Encounters Encounter Location Date Provider Diagnosis [facility] [place] [address] [place] [address] 09/07/2024 Denny Graham Tinea unguium B35.1 ; Pain in right toe(s) M79.674 ; Pain in left toe(s) M79.675 ; Type 2 diabetes mellitus with diabetic polyneuropathy E11.42 ; Metatarsalgia, left foot M77.42 ; Xerosis cutis L85.3 ; Venous insufficiency I87.2 ; Venous insufficiency of both lower extremities I87.2 and Ingrowing nail L60.0 Assessments Encounter Date Diagnosis (ICD Code) Assessment Notes Treatment Notes Treatment Clinical Notes Section Notes 09/07/2024 Tinea unguium (ICD-10 - B35.1) 09/07/2024 Pain in right toe(s) (ICD-10 - M79.674) 09/07/2024 Pain in left toe(s) (ICD-10 - M79.675) 09/07/2024 Type 2 diabetes mellitus with diabetic polyneuropathy (ICD-10 - E11.42) 09/07/2024 Metatarsalgia, left foot (ICD-10 - M77.42) 09/07/2024 Xerosis cutis (ICD-10 - L85.3) 09/07/2024 Venous insufficiency (ICD-10 - I87.2) 09/07/2024 Venous insufficiency of both lower extremities (ICD-10 - I87.2) 09/07/2024 Ingrowing nail (ICD-10 - L60.0) Plan Of Treatment Next Appt Details Follow Up: 3 Months, Reason: Provider Name:Bessie capone, 04/06/2025 02:00:00 PM, [address] [facility], [address], [place], [address], Procedure Notes * Category Sub-Category Detail Notes Debride Nail 6-10 Nail debridement Nail debridem ent performed extensively to reduce/remove overall nail length and girth, subungual debris, and necrotic tissue, by manual and electrical means with use of a nail nipper and/or dremel, to more viable healthy nail plate or bed tissue 6-10. Silver nitrate used for any petechial bleeding as necessary. Patient chooses, no pharmaceutical tx (39587) Keratoma Treatment Parring or Cutting o f Benign Hyperkeratotic Lesion(s) 32162 (2-4 Lesions) - The Benign hyperkeratotic lesions, as described above were pared, and/or cut utilizing a sterile #15 blade, tissue nippers, and/or dremel Progress Notes * Pamela CRONIN CDOB:[birth year] (78 yo F)Acc No.[id number]:09/07/2024 Progress Note Patient:?Pamela Cronin Provider:?Denny Graham DPM :1945???Age:78 Y???Sex:Female D ate:09/07/2024 Address:[address] [place] [address], [id number] Pcp:Charles Jade MD Subjective: * Chief Complaints: * ??? Painful nail(s) aggrevat ed by shoes and causing difficulty standing/walking. * HPI: ???Painful Nails:?Pt States Last PCP Visit:?Date:?08/15/2024 * ROS:?General/Constitutional:?Nausea?denies.?Vomiting?denies.?Hunger Thirst?denies.?Loss appetite?denies.?Chills?denies.?Fatigue?denies.?Fever?denies.?Night Sweats?denies.?Unexplained weight loss?denies.?Unexplained weight gain?denies.?HEENTM:?Dentures?denies.?Dizziness?denies.?Glasses/contacts?admits.?Retinopathy?de nies.?Blurred/double vision?denies.?TMJ?denies.?Discharge/drainage?denies.?Implants?denies.?Sore throat?denies.?Dental implants?denies.?Hard of hearing ?denies.?Difficulty chewing/swallowing/speaking?denies.?Nose bleeds?denies.?Sore mouth?denies.?Respiratory:?On Oxygen?denies.?Pneumonia/pleurisy?denies.?Bronchitis?denies.?Emphysema?denies.?C oughing?denies.?Cough blood?denies.?Shortness of breath?denies.?Wheezing?denies.?Cardiovascular:?Pacemaker?denies.?MVP?denies.?WPW?denies.?CHF?denies.?Heart attack?denies.?Septal defect?denies.?Rapid beat?denies.?Chest pain ?denies.?Atrial Fib.?denies.?Murmur/Palpitations?admits.?Gastrointestinal:?Hemorrhoids?denies.?Stomach/Abdominal pain?denies.?Dark blood stool?denies.?Irritable bowel ?denies.?Constipation?denies.?Diarrhea?denies.?Hematology:?Swelling?admits.?Clots?denies.?Varicose Veins?denies.?Bruising?denies.?Bleeding problem?denies.?Genitourinary:?Blood urine?denies.?Frequent/Painfu/urination/bladder control?denies.?Kidney stones?denies.?Infection (UTI)?denies.?Nephropathy?denies.?sex trans dis (STD)?denies.?Prostate?denies.?Musculoskeletal:?Hammertoes?denies.?Bunions?denies.?Back Pain?denies.?Muscle Cramps/ Resting?denies.?Muscle cramps / walking?denies.?Generalized aches and pains?admits.?Weakness?denies.?Integ.:?Hoang?denies.?Scars?denies.?Corns/calluses?denies.?Ingrown nails?denies.?Painful nails?denies.?Open Sores?denies.?Rashes?denies.?Neurologic:?Difficulty sleeping?denies.?Brain disorder?denies.?Numbness?denies.?Balance trouble?denies.?Confusion?denies.?Fainting/blackouts?denies.?Tingling?denies.?Tr emors?denies.? * Medical History:? * Surgical History:?knee surge ry, left 2011cataract surgery bilateral 2016 * Hospitalization/Major Diagno stic Procedure:?Denies Past Hospitalization * Family History:?Mother: dece ased, diagnosed with Family history of arthritis.?Father: .?Spouse: alive.? * Social History:?Tobacco Use:?Tobacco Use/Smoking?Are you a:?former smoker ?Additional Findings: Tobacco Non-User?Current non-smoker ?Tobacco use other than smoking?Are you an other tobacco user??No ???Drugs/Alcohol:?Drugs?Have you used drugs other than those for medical reasons in the past 12 months??No ?Alcohol Screen?Did you have a drink containing alcohol in the past year??No ?Points?0 ?Interpretation?Negative ???Miscellaneous:?Caffeine: yes, 2-3 cups per day. ?no Children, none. ?Exercise: yes, walking, exercise. ?Living with: spouse. ?Marital status: . 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 * Medications:?TakingPioglitaz one HCl aspirin baby Atorvastatin Calcium 40 MG Tablet 1 tablet Orally Once a dayglipiZIDE Levothyroxine Sodium 75 MCG Tablet 1 tablet on an empty stomach in the morning Orally Once a dayMetformin & Diet Manage Prod Restasis Triamterene-HCTZ 37.5-25 MG Capsule 1 capsule in the morning Orally Once a dayTaking Pioglitazone HCl Taking aspirin baby Taking Atorvastatin Calcium 40 MG Tablet 1 tablet Orally Once a dayTaking glipiZIDE Taking Levothyroxine Sodium 75 MCG Tablet 1 tablet on an empty stomach in the morning Orally Once a dayTaking Metformin & Diet Manage Prod Taking Restasis Taking Triamterene-HCTZ 37.5-25 MG Capsule 1 capsule in the morning Orally Once a dayNot-Taking/PRNTimolol Hemihydrate Clindamycin HCl 150 MG Capsule 2 capsules Orally every 8 hrsTravatan Z 0.004 % Solution INSTILL ONE DROP IN BOTH EYES DAILY Ophthalmic Not-Taking/PRN Timolol Hemihydrate Not-Taking/PRN Clindamycin HCl 150 MG Capsule 2 capsules Orally every 8 hrsNot-Taking/PRN Travatan Z 0.004 % Solution INSTILL ONE DROP IN BOTH EYES DAILY Ophthalmic UnknownExtra- Depth Diabetic Shoes with 3 Pair Custom heat-molded multi-density innersoles . . for 1 year . Dx:Medication List reviewed and reconciled with the patientUnknown Extra-Depth Diabetic Shoes with 3 Pair Custom heat-molded multi-density innersoles . . for 1 year . Dx:Medication List reviewed and reconciled with the patient * Allergies:?Amoxicillin: rash - Allergyyes[Allergies Verified] Objective: * Vitals:?Ht: 5 ft 3 in, Wt: 2 49, BMI: 44.1, Shoe size: 8.5-9, BS: 100, Wt-k.94 kg. * ???Past Orders: ???Lab:HEMOGLOBIN A1C (GLYCO HEMOGLOBIN) (Order Date - 08/15/2024) (Collection Date - 08/15/2024) ? Value Reference Range ?TOTAL HEMOGLOBIN (HGBA1C) 5.1 * Examination: ???Neurological: ?SENSORY:? Neurological exam demonstrates, reduced light touch sensation, reduced vibration lower extremity, B/L, at Forefoot, at Midfoot, 5.07 monofilament test performed at plantar aspects of 5 varied sites per foot shows sensation, reduced , B/L, Neurological exam demonstrates pop of varicose veins both aspects of whitney ankles and lower legs --right more painful than left.?General Examination: ?GENERAL APPEARANCE:?pleasant, alert, well nourished, well developed, well hydrated, with good attention to hygene/body habitus, and in no acute distress.?ORIENTED:?person,place, and time.?FOOT EXAM:?Lower Extremity Neurological Exam performed:?Yes ?Visual exam of foot performed:?Yes ?Date?03/17/2022 ?Sensory testing performed:?sensations diminished ?Pedal pulse taking performed:?1+?Vascular: ?DP PULSES(B):? 11/18, B/L.?PT PULSES(B):? 11/18, B/L.?CAPILLARY FILL TIME:?3 secs. per digit. B/L.?TROPHIC CONDITION-TEXTURE/ELASTICITY/TURGOR/HAIR GROWTH(B):?normal, B/L.?TEMPERTURE GRADIENT(C):?normal, B/L.?PIGMENTATION:?normal, B/L.?EDEMA(C):? 2/4, B/L, Ankle(s).?TELANGECTASIA:? moderate.?VARICOSITIES:? present, moderate, painful, B/L.?Nails: ?NAILS are:?Elongated, overgrown, dystrophic, greater than 3mm thick, discolored and friable with crumbly malodorous subungual debris, with dull to no pain on palpation due to neuropathy, 1-5 B/L.?Dermatologic: ?SKIN FINDINGS:? Skin shows sign(s) of, dryness, scaling, in a stocking fashion, no fissure(s) present, B/L, Skin exam reveals Keratotic lesion(s) located at, Plantar, Heel(s), B/L .?Ophthalmology Referral: ?DIABETES EYE EXAM?Diabetic Retinopathy Screening:?Yes 08/07 ?Findings of Diabetic Eye Exam:?no retinopathy?Ingrown Nail: ?INSPECTION:? Reveals nail incurvation, pain on palpation, groove hypertrophy, groove ischemia, Lateral nail border, TA.? Assessment: * Assessment: 1.?Tinea unguium - B35.1 (Pr imary)?2.?Pain in right toe(s) - M79.674?3.?Pain in left toe(s) - M79.675?4.?Type 2 diabetes mellitus with diabetic polyneuropathy - E11.42?5.?Metatarsalgia, left foot - M77.42?6.?Xerosis cutis - L85.3?7.?Venous insufficiency - I87.2?8.?Venous insufficiency of both lower extremities - I87.2?9.?Ingrowing nail - L60.0 (Primary)? Plan: * Treatment: * Procedures:?Debride Nail 6-10:?Nail debridement?Nail debridement performed extensively to reduce/remove overall nail length and girth, subungual debris, and necrotic tissue, by manual and electrical means with use of a nail nipper and/or dremel, to more viable healthy nail plate or bed tissue 6-10. Silver nitrate used for any petechial bleeding as necessary. Patient chooses, no pharmaceutical tx (72433).?Keratoma Treatment:?Parring or Cutting of Benign Hyperkeratotic Lesion(s)?09662 (2-4 Lesions) - The Benign hyperkeratotic lesions, as described above were pared, and/or cut utilizing a sterile #15 blade, tissue nippers, and/or dremel.? * Procedure Codes:?11716 DEBRI DE NAIL, 6 OR MORE, Modifiers: XS 52196 TRIM SKIN LESIONS, 2 TO 4, Modifiers: XS * Follow Up:?3 Months * Images: * Sign off status: Completed true * Provider:?Denny Graham DPM Date:? 024 Generated for Printi ng/Faxing/eTransmitting on:?03/07/2025 07:43 AM EDT History and Physical Notes * HPI (History of Present Illness) Category Sub-Category Detail Notes Category Not es Painful Nails Pt States Last PCP Visit: Date:: 08/15/2024 Examination Category Sub-Category Detail Notes Category Not es Ingrown Nail INSPECTION: Reveals nail inc urvation, pain on palpation, groove hypertrophy, groove ischemia, Lateral nail border, TA Neurological SENSORY: Neurological exa m demonstrates, reduced light touch sensation, reduced vibration lower extremity, B/L, at Forefoot, at Midfoot, 5.07 monofilament test performed at plantar aspects of 5 varied sites per foot shows sensation, reduced , B/L, Neurological exam demonstrates pop of varicose veins both aspects of whitney ankles and lower legs --right more painful than left Dermatologic SKIN FINDINGS: Skin shows sign( s) of, dryness, scaling, in a stocking fashion, no fissure(s) present, B/L, Skin exam reveals Keratotic lesion(s) located at, Plantar, Heel(s), B/L General Examination GENERAL APPEARANCE: pleasant , alert, well nourished, well developed, well hydrated, with good attention to hygene/body habitus, and in no acute distress FOOT EXAM: Lower Extremity Neurological Exa m performed:: Yes Visual exam of foot performed:: Yes Date: 03/17/2022 Sensory testing performed:: sensations d iminished Pedal pulse taking performed:: 1+ ORIENTED: person,place, and ti me Ophthalmology Referral DIABETES EYE EXAM Diabetic Reti nopathy Screening:: Yes 08/07 Findings of Diabetic Eye Exam:: no retin opathy Vascular DP PULSES (B): 1/4, B/L PT PULSES (B): 1/4, B/L CAPILLARY FILL TIME: 3 secs. per digit. B/L TEMPERTURE GRADIENT (C): normal, B/L TROPHIC CONDITION-TEXTURE/EL ASTICITY/TURGOR/HAIR GROWTH (B): normal, B/L EDEMA (C): 2/4, B/L, Ankle(s) TELANGECTASIA: moderate VARICOSITIES: present, moderate, p ainful, B/L PIGMENTATION: normal, B/L Nails NAILS are: Elongated, overg rown, dystrophic, greater than 3mm thick, discolored and friable with crumbly malodorous subungual debris, with dull to no pain on palpation due to neuropathy, 1-5 B/L
--- OUTSIDE RECORDS SUMMARY | 2025-03-07 07:44 | XMS_ITS ---
Author Organization [facility] Address [address] [facility] [place] [address] Care Team Providers Care Tripe Cooker Name Role Phone Charles Jade MD Primary Care Provider Unavailab Bessie Pro Unavailable [phone] REASON FOR VISIT RS 02/26 appt Encounters Encounter Location Date Provider Diagnosis [address] [place] [address] 02/22/2025 Bessie More Plan Of Treatment Next Appt Details Provider Name:Bessie capone, 04/06/2025 02:00:00 PM, [address] [facility] [facility] [address], [place], [address], Progress Notes * Pamela CRONIN CDOB:[birth year] (79 yo F)Acc No.[id number]:02/22/2025 Patient:?Pamela CRONIN :1945???Age:79 Y???Sex:Female Address:[address] [place] [address] [place] [address] * true * Date:? Generated for Printi ng/Faxing/eTransmitting on:?03/07/2025 07:43 AM EDT
[2025-03-07 08:21] LABS: Hematocrit 35.7 % (37.0-47.0); Hemoglobin 11.1 g/dl (12.0-16.0); Mean Corpuscular HGB Conc 31.1 g/dl (31.0-35.0); Mean Corpuscular Hemoglobin 28.5 pg (27.0-33.0); Mean Corpuscular Volume 91.8 fL (80.0-98.0); Mean Platelet Volume 9.5 fL (9.4-12.3); Platelet Count 187 X10*3/uL (160-400); Red Blood Count 3.89 X10*6/uL (4.20-5.50); Red Cell Distribution Width 15.7 % (11.0-16.0); White Blood Count 4.3 X10*3/uL (4.8-10.8)
[2025-03-07 08:27] LABS: Estimated Average Glucose 114 mg/dL; Hemoglobin A1C 110.9731 umol/L; Hemoglobin A1c % 5.6 % (<6.0); Total Hemoglobin (HGBA1C) 2909.8677 umol/L
[2025-03-07 08:49] LABS: Alanine Aminotransferase 16 U/L (0-31); Albumin Level 4.1 g/dL (3.5-5.0); Alkaline Phosphatase 69 U/L (39-117); Anion Gap 10 (12-20); Aspartate Amino Transferase 23 U/L (5-31); Bilirubin Total 0.5 mg/dL (0.0-1.0); Blood Urea Nitrogen 22 mg/dL (9-16); Calcium 9.3 mg/dL (8.4-10.2); Carbon Dioxide 32 mmol/L (22-29); Chloride 104 mmol/L (96-108); Cholesterol 164 mg/dL (<200); Estimated Glomerular Filt Rate > 60; Glucose Random 93 mg/dL (60-115); HDL Cholesterol 64 mg/dL (>40); LDL Cholesterol Calculated 87 mg/dL (<100); Potassium 4.2 mmol/L (3.3-5.1); Sodium 142 mmol/L (135-145); Total Protein 7.2 g/dL (6.5-8.0); Triglycerides 66 mg/dL (<150)
[2025-03-07 12:45] LABS: Band Neutrophils Percent 1 % (3-5); Lymphocytes Absolute Manual 1.1 X10*3/uL (1.2-4.9); Lymphocytes Percent Manual 26 % (20-40); Metamyelocytes Absolute 0.2 X10*3/uL; Metamyelocytes Percent 4 %; Monocytes Absolute Manual 0.6 X10*3/uL (0.1-1.2); Monocytes Percent Manual 13 % (2-11); Myelocytes Absolute 0.2 X10*/uL; Myelocytes Percent 5 %; Neutrophils Absolute Manual 2.2 X10*3/uL (2.0-8.3); Neutrophils Percent Manual 51 % (45-73); Platelet Estimate NORMAL (NORMAL); Platelet Morphology Comment NORMAL; RBC Morphology NORMAL
[2025-03-08 11:27] LABS: C Reactive Protein 0.17 mg/dL (< or = 0.50); Iron 62 mcg/dL (30-160); Percent Iron Saturation 19 % (15-50); Total Iron Binding Capacity 325 mcg/dL (228-428); Unsaturated Iron Binding 263 ug/dL
[2025-03-08 11:41] LABS: Ferritin 38 ng/mL (10-250)
== END 2025-03-07 07:40 | disposition home or self-care (01) ==
LOC: HO.LAB 07:39
PROVIDERS: PCP Internal Medicine; Visit Provider Internal Medicine
DX: D64.9 Anemia, unspecified (principal); R53.83 Other fatigue; E78.5 Hyperlipidemia, unspecified; E11.8 Type 2 diabetes mellitus with unspecified complications
CPT/HCPCS: 36415; 80053; 80061; 82728; 83036; 83540; 85007; 85025; 85027; 86140

== ENCOUNTER 2025-04-13 08:45 | Outpatient (REF) | payer MEDICARE, SELFPAY ==
--- OUTSIDE RECORDS SUMMARY | 2025-04-13 08:48 | XMS_ITS ---
Author Organization [facility] Address [address] [place] [address] Care Team Providers Care Net Ui Developer Name Role Phone Yasmany PAZ, Charles Primary Care Provider Unavailab Bessie Pro [phone] Encounters Encounter Location Date Provider Diagnosis [address] [address] 04/06/2025 Bessie More Plan Of Treatment Next Appt Details Provider Name:Bessie capone, 04/18/2025 02:30:00 PM, [address] [place], [address], Progress Notes * Pamela CRONIN CDOB:[birth year] (79 yo F)Acc No.[id number]:04/06/2025 Progress Note Patient:Pamela NOWAK Provider:?Bessie More DPM :1945???Age:79 Y???Sex:Female D ate:04/06/2025 Address:[address] [place], [place] [address] [id number] Pcp:Charles Jade MD Subjective: * Chief Complaints: * ??? * Medical History:? Objective: * Vitals:? Assessment: Plan: * Treatment: * Images: * The named appointment provid er may or may not be the originator of this progress note, and it is not deemed complete until electronically signed by the appointment provider. Sign off status: Pending * Provider:?Bessie More DPM Date:?0 04/06/2025 Generated for Jurgen ramsey/Valorie/Lotusitting on:?04/13/2025 08:48 AM EDT
[2025-04-13 09:21] LABS: Hemoglobin 11.5 g/dl (12.0-16.0); Mean Corpuscular HGB Conc 31.9 g/dl (31.0-35.0); Mean Corpuscular Hemoglobin 29.5 pg (27.0-33.0); Mean Corpuscular Volume 92.3 fL (80.0-98.0); Mean Platelet Volume 9.4 fL (9.4-12.3); Platelet Count 199 X10*3/uL (160-400); Red Cell Distribution Width 15.2 % (11.0-16.0); White Blood Count 4.3 X10*3/uL (4.8-10.8)
[2025-04-13 10:06] LABS: Iron 67 mcg/dL (30-160); Percent Iron Saturation 19 % (15-50); Total Iron Binding Capacity 345 mcg/dL (228-428); Unsaturated Iron Binding 278 ug/dL
[2025-04-13 10:24] LABS: Ferritin 39 ng/mL (10-250)
[2025-04-13 10:33] LABS: Folate 13.3 ng/mL (> or = 4.0); Vitamin B12 526 pg/mL (200-900)
[2025-04-13 11:09] LABS: Band Neutrophils Percent 1 % (3-5); Eosinophils Percent Manual 1 % (0-4); Lymphocytes Absolute Manual 1.2 X10*3/uL (1.2-4.9); Lymphocytes Percent Manual 29 % (20-40); Metamyelocytes Absolute 0.1 X10*3/uL; Metamyelocytes Percent 2 %; Monocytes Absolute Manual 0.2 X10*3/uL (0.1-1.2); Monocytes Percent Manual 4 % (2-11); Myelocytes Absolute 0.2 X10*/uL; Myelocytes Percent 4 %; Neutrophils Absolute Manual 2.5 X10*3/uL (2.0-8.3); Neutrophils Percent Manual 58 % (45-73); Promyelocytes Percent 1 %
[2025-04-13 11:10] LABS: Platelet Estimate NORMAL (NORMAL); Platelet Morphology Comment NORMAL; RBC Morphology NORMAL
== END 2025-04-13 08:46 | disposition home or self-care (01) ==
LOC: HO.LAB 08:45
PROVIDERS: PCP Internal Medicine; Visit Provider Internal Medicine
DX: R53.83 Other fatigue (principal); D64.9 Anemia, unspecified
CPT/HCPCS: 36415; 82607; 82728; 82746; 83540; 85007; 85027

== ENCOUNTER → 2025-04-26 10:15 | Outpatient (BNV) | payer MEDICARE, SELFPAY | PROVIDERS: PCP Internal Medicine; Visit Provider Internal Medicine | DX: Z12.31 Encounter for screening mammogram for malignant neoplasm of breast (principal) | CPT/HCPCS: 77063; 77067 ==

== ENCOUNTER 2025-04-26 10:20 | Outpatient (REF) | payer MEDICARE, SELFPAY ==
--- OUTSIDE RECORDS SUMMARY | 2025-04-26 11:59 | XMS_ITS ---
Author Organization [facility] Address [address] [place] [phone] Care Team Providers Care Instrument Repair Specialist Name Role Phone Yasmany PAZ, Charles Primary Care Provider Unavailab Bessie Pro Unavailable [phone] Encounters Encounter Location Date Provider Diagnosis [address] [address] 04/06/2025 Bessie More Plan Of Treatment Next Appt Details Provider Name:Bessie capone, 07/10/2025 10:45:00 AM, [address] [place] [address], [address], Provider Name:Bessie capone, 10/17/2025 11:15:00 AM, [address] [place], [address], Progress Notes * Pamela CRONIN CDOB:[birth year] (79 yo F)Acc No.[id number]:04/06/2025 Progress Note Patient:?Pamela CRONIN Provider:?Bessie More DPM :1945???Age:79 Y???Sex:Female D ate:04/06/2025 Address:[address] [place] [address] [id number] Pcp:Charles Jade MD Subjective: * Chief Complaints: * ??? * Medical History:? Objective: * Vitals:? Assessment: Plan: * Treatment: * Images: * The named appointment provid er may or may not be the originator of this progress note, and it is not deemed complete until electronically signed by the appointment provider. Sign off status: Pending * Provider:Bonita More DPM Date:?0 04/06/2025 Generated for Jurgen ramsey/Valorie/Soto on:?04/26/2025 11:59 AM EDT
== END 2025-04-26 10:21 | disposition home or self-care (01) ==
LOC: HO.MAMMO 10:20
PROVIDERS: PCP Internal Medicine; Visit Provider Internal Medicine
DX: Z12.31 Encounter for screening mammogram for malignant neoplasm of breast (principal)
CPT/HCPCS: 77063; 77067

== ENCOUNTER 2025-05-16 14:50 | Outpatient (AMB) | payer MEDICARE, SELFPAY ==
--- OUTSIDE RECORDS SUMMARY | 2025-04-06 10:00 | XMS_ITS ---
Author Organization [facility] Address [address] [place] [phone] Care Team Providers Care Special Deputy Sheriff Name Role Phone Yasmany PAZ, Charles Primary Care Provider UnavailBessie Gilmore [phone] Encounters Encounter Location Date Provider Diagnosis [address] [address] 04/06/2025 Bessie More Plan Of Treatment Next Appt Details Provider Name:Bessie capone, 07/10/2025 10:45:00 AM, [address] [place] [address], [phone], Provider Name:Bessie capone, 10/17/2025 11:15:00 AM, [address] [place] [address], [phone], Progress Notes * Pamela CRONIN CDOB:[birth year] (79 yo F)Acc No.[id number]:04/06/2025 Progress Note Patient: Pamela WINTERS Provider: Dayana More DPM :1945 A ge:79 Y S ex:Female Date:04/06/2025 Address:[address] [place], [place] [id number] Pcp:Charles Jade MD Subjective: * Chief Complaints: * * Medical History: Objective: * Vitals: Assessment: Plan: * Treatment: * Images: * The named appointment provid er may or may not be the originator of this progress note, and it is not deemed complete until electronically signed by the appointment provider. Sign off status: Pending * Provider: Dayana More DPM Date: 0 04/06/2025 Generated for Jurgen ramsey/Hieu on: 05/16/2025 03:13 PM EDT
--- NOTE | 2025-05-16 14:59 | MHC.OFFVIS ---
Vital Signs 05/16/25 15:02 Height 5 ft 2 in Weight 241 lb 2.971 oz BMI 44.1 BP 124/62 Blood Pressure Location Lt brachial Position Sitting Pulse 81 Pulse Source Monitor Intake Visit Reasons: 6m follow up Intake Note: 6 mth f/up Overhead Line Worker Required: No Accompanied by: Self / Same As Patient Allergies Amoxicillin Allergy (Unknown, Uncoded 04/22/23 13:33) rash Medication List - Last Reconciled 05/16/25 by Hermes Fine MD amlodipine 2.5 mg PO DAILY aspirin (Adult Aspirin Regimen) 81 mg PO DAILY atorvastatin 40 mg PO DAILY cyclosporine 0.05% (Restasis) 1 drp ophthalmic (eye) BID glipizide 5 mg PO BID levothyroxine 100 mcg PO DAILY metformin 500 mg PO BID pioglitazone 30 mg PO DAILY triamterene-hydrochlorothiazid 37.5-25 mg 1 cap PO DAILY HPI Comments Details: 78-year-old female here for follow-up. She was seen for chest discomfort, shortness of breath and abnormal nuclear stress test. Cardiac catheterization was performed on 11/22/2020 from the right radial artery access. She had mid LAD 30% stenosis at proximal RCA had 30% stenosis. Her LVEDP was normal. She has elevated BP and she was advised to increase her amlodipine to 5 mg. She said she was getting dizzy and decided to cut back on her amlodipine to 2.5 mg daily. on follow-up today, Blood pressure control is good. She is denying any chest discomfort. She has shortness of breath and fatigue which happen with activity. I think this is deconditioning. 04/24/2024: She returns for follow-up. Blood pressure is well controlled. No chest pains. She again is complaining of fatigue. She is saying that with minimal tired and fatigued. We discussed about sleep study last time but it appears she has not done sleep study. 10/02/2024: She is here for follow-up. She has been prescribed Ozempic by her primary care physician. She has not started it yet. She is saying there was a long side effect profile that she read. We discussed about weight loss and beneficial effects for her being a diabetic and having significant dyspnea and fatigue. 05/16/25: Here for follow-up. She continues to have some dyspnea on exertion. She had influenza while she was in [place] and was treated with antibiotics and was given an inhaler also. She is saying that things have been overall stable and she has nothing different to report currently. [facility] Medical History Abnormal stress test Surgical History History of cardiac cath H/O knee surgery Family History Mother No problems noted. Father No problems noted. Social History Alcohol intake: current Alcohol intake frequency: holidays/special occasions only Patient Tobacco Use Status: Never used Tobacco Review of Systems Const Denies chills, Denies fatigue, Denies fever(s), Denies frequent falls, Denies weakness, Denies weight gain and Denies weight loss ENT Denies dizziness Card Denies chest pain, Denies leg edema, Denies lightheadedness, Denies palpitations, Denies dyspnea and Denies dyspnea on exertion Resp Denies cough, Denies dyspnea and Denies dyspnea on exertion GI Denies hematochezia Musc Denies abnormal gait, Denies muscle weakness, Denies numbness, Denies radiating pain into limb and Denies tingling Neuro Denies abnormal gait, Denies dizziness, Denies frequent falls, Denies numbness, Denies tingling and Denies weakness Endo Denies fatigue and Denies palpitations Physical Exam Vital Signs: Last Vital Signs Pulse 81 05/16/25 15: BP 124/62 05/16/25 15:02 BMI result Body Mass Index 44.1 GENERAL APPEARANCE: in no acute distress, obese. NECK/THYROID: no carotid bruit, no jugular venous distention. SKIN: no suspicious lesions, warm and dry. HEART: no murmurs, regular rate and rhythm, S1, S2 normal. LUNGS: clear to auscultation bilaterally. ABDOMEN: normal, bowel sounds present, soft, nontender, nondistended. EXTREMITIES: no clubbing, cyanosis, or edema. PERIPHERAL PULSES: equal. NEUROLOGIC: nonfocal, alert and oriented. PSYCH: mood/affect full range. Office Procedures EKG Details: Normal sinus rhythm 81 beats per minute, normal axis, poor R-wave progression, QTC 429 milliseconds+ [id number], Complete Assessment & Plan Assessment & Plan (1) Hypertension: Code(s): I10 - Essential (primary) hypertension Category: Medical (2) Dyspnea: Code(s): R06.00 - Dyspnea, unspecified Category: Medical Plan Pleasant 79 year female who is here for follow-up. Blood pressure is well controlled currently. She will continue same medicines. She has dyspnea which is multifactorial. Overall she has been stable. She will see us back in 6-9 months. Thank you for allowing me to participate in the care of your patient. Please feel free to contact me if you have any questions. Coding Level of Care Code Est Pt Level 3 (00718) Diagnoses Hypertension I10 Dyspnea R06.00 CPT Codes EKG - CPT: 46439-Nftxruohftjhoeque, Complete ([id number])
[2025-05-16 15:02] VITALS: BP 124/62; PULSE 81; BMI 44.1
== END 2025-05-16 15:28 | disposition home or self-care (01) ==
LOC: HO.HCS 14:51
PROVIDERS: PCP Internal Medicine; Visit Provider Internal Medicine Cardiovascular Disease
DX: I10 Essential (primary) hypertension (principal); R06.00 Dyspnea, unspecified
CPT/HCPCS: 93010; 99213

== ENCOUNTER → 2025-05-16 14:50 | Outpatient (BNVA) | payer MEDICARE, SELFPAY | PROVIDERS: PCP Internal Medicine; Visit Provider Internal Medicine Cardiovascular Disease | DX: R06.09 Other forms of dyspnea (principal); I10 Essential (primary) hypertension | CPT/HCPCS: 93005; 99212 ==

== ENCOUNTER 2025-07-10 13:34 | Outpatient (AMB) | payer MEDICARE, SELFPAY ==
--- OUTSIDE RECORDS SUMMARY | 2025-04-06 10:00 | XMS_ITS ---
Author Organization [facility] Address [address] [place] [address] Care Team Providers Care Clearing Supervisor Name Role Phone Bill Martinez Primary Care Provider Bessie Ospina [phone] Encounters Encounter [facility] Date [facility] [address] 04/06/2025 Bessie More Plan Of Treatment Next Appt Details Provider Name:Bessie capone, 10/17/2025 11:15:00 AM, [address] [place], [address], Progress Notes * Pamela CRONIN CDOB:[birth year] (79 yo F)Acc No.[id number]:04/06/2025 Progress Note Patient: Pamela WINTERS Provider: Dayana More DPM :1945 A ge:79 Y S ex:Female Date:04/06/2025 Address:[address] [place], [place] [id number] Pcp:Bill Martinez Subjective: * Chief Complaints: * [...] 04/06/2025 Generated for Jurgen ramsey/Valorie/Lotusitting on: 0 07/10/2025 02:34 PM EDT
--- OUTSIDE RECORDS SUMMARY | 2025-07-10 06:45 | XMS_ITS ---
Author Organization [facility] alfredo GranadosRalph Address [address] [facility] [place] [address] Care Team Providers Care Spring Assembler Supervisor Name Role Phone Bill Martinez Primary Care Provider Bessie Ospina Unavailable [phone] Allergies Allergen (clinical drug ingredient) Drug/Non Drug Allergy documented on EMR Reaction Allergy Type Onset Date Status amoxicillin Amoxicillin rash Drug Allergy Act brandon REASON FOR VISIT At Risk Footcare Medications Medication SIG (Take, Route, Frequency, Duration) Notes Start Date End Date Status Atorvastatin Calcium 40 MG 1 tablet Oral ly Once a day; Duration: 30 day(s) Active glipiZIDE Active Levothyroxine Sodium 75 MCG 1 tablet on an empty stomach in the morning Orally Once a day; Duration: 30 day(s) Active Metformin & Diet Manage Prod Active Restasis Active Pioglitazone HCl Act brandon Extra-Depth Diabetic Shoes with 3 Pair Custom heat-molded multi-density innersoles . for 1 year . Dx:; Duration: . 04/04/2015 Not-Taking aspirin baby Active Clindamycin HCl 150 MG 2 capsules Orally every 8 hrs; Duration: 5 day(s) 04/19/2018 Not-Taking Travatan Z 0.004 % INSTILL ONE DROP IN BOTH EYES DAILY Ophthalmic; Duration: 90 Not-Taking Triamterene-HCTZ 37.5-25 MG 1 capsule in the morning Orally Once a day; Duration: 30 day(s) Active Timolol Hemihydrate Not-Taking Social History Tobacco Use: Social History Observation Description Date Details (start date - stop date) Never Smoker NA - NA Tobacco use other than smoking: Question Answer Notes Are you an other tobacco user? No Tobacco Control (Standard) Question Answer Notes Tobacco use: Nonsmoker Additional Findings: Tobacco non-user Current no nsmoker AUDIT-C (Standard) Question Answer Notes Did you have a drink containing alcohol in the p ast year? No Points 0 Interpretation Negative Vital Signs Height 5 ft 3 in in 07/10/2025 Weight 239 lbs 07/10/2025 BMI 42.33 kg/m2 07/10/2025 Blood pressure systolic 128 mm Hg 07/10/20 Blood pressure diastolic 65 mm Hg 025 Procedures Procedure Date Ordered Date Performed Result Body Sit e 56802-ABJDHTO NAIL, 6 OR MORE 07/10/2025 N/A 35116-RQWA SKIN LESIONS, 2 TO 4 07/10/2025 N/A Encounters Encounter Location Date Provider Diagnosis [facility] [address] [address] 07/10/2025 Bessie More Type 2 diabetes mellitus with diabetic polyneuropathy E11.42 and Tinea unguium B35.1 Assessments Encounter Date Diagnosis (ICD Code) Assessment Notes Treatment Notes Treatment Clinical Notes Section Notes 07/10/2025 Type 2 diabetes mellitus with diabetic polyneuropathy (ICD-10 - E11.42) 07/10/2025 Tinea unguium (ICD-10 - B35.1) Plan Of Treatment Pending Test Test Name Order Date 26736-KINJMDA NAIL, 6 OR MORE 07/10/2025 89547-JONY SKIN LESIONS, 2 TO 4 07/10/20 25 Next Appt Details Follow Up: 3 Months, Reason: Provider Name:Bessie Zamora estelita, 10/17/2025 11:15:00 AM, [address] [place], [id number], Procedure Notes * Category Sub-Category Detail Notes Debride Nail 6-10 Nail debridement Due to the cl inical pathology outlined in the exam findings, performance of this nail treatment is medically necessary as its management by an unskilled/untrained nonprofessional would put this patients foot and overall health at risk. Therefore, debridement to affected nail(s), as described in exam ( TA, T1, T2, T3, T4, T5, T6, T7, T8, T9, ), was performed exclusively by the physician of record to reduce/remove overall nail length, girth, thickness, subungual debris, and necrotic tissue, by manual and/or electrical means through the use of a nail nipper and/or dremel-type grinder setup operator, to a more viable healthy nail plate or bed tissue 6-10 nails in total. Silver nitrate was used for any petechial bleeding as necessary. Definitive antifungal treatment options, both pharmaceutical and surgical, have been reviewed and discussed with the patient. The patient solely prefers the use of intermittent/as needed professional debridement services for their nail condition and understands the need for additional periodic treatments to maintain effectiveness in symptomatic relief - 93727 Keratoma Treatment Parring or Cutting o f Benign Hyperkeratotic Lesion(s) (-56) 2-4 Lesions - Due to the at risk nature of the patients medical condition as documented in the exam findings, performance of this keratoderma treatment is medically necessary as its management by an unskilled/untrained nonprofessional would put this patients foot and overall health at risk. Therefore, the benign hyperkeratotic lesions, (2) in total, locations as stated and described in the exam ( plantar heels B/L ), were pared, and/or cut utilizing a sterile 15 blade, tissue nippers, and/or power dremel instrumentation by the physician of record - 54499 Progress Notes * Pamela CRONIN CDOB:[birth year] (79 yo F)Acc No.[id number]:07/10/2025 Progress Note Patient: Pamela WINTERS Provider: Dayana More DPM :1945 A ge:79 Y S ex:Female Date:07/10/2025 Address:[address] [place], [place] [id number] Pcp:Bill Martinez Subjective: * Chief Complaints: * A t Risk Footcare * HPI: A t Risk footcare: Pt States Last PCP Visit: D ate 0 02/12/2025 * ROS: G eneral/Constitutional: Nausea d enies. V omiting d enies. H raquel Thirst d enies. L oss appetite d enies. C hills d enies. F atigue d enies.?Fever d enies. N ight Sweats d enies. U nexplained weight loss d enies. U nexplained weight gain d enies. H EENTM: Dentures d enies. D izziness d enies. G lasses/contacts a dmits. R etinopathy d enies. B lurred/double vision d enies. T MJ?denies. D ischarge/drainage d enies. I mplants d enies. S ore throat d enies. D ental implants d enies. H dc of hearing d enies. D ifficulty chewing/swallowing/speaking d enies. N ose bleeds d enies. S ore mouth d enies. ? R espiratory: On Oxygen d enies. P neumonia/pleurisy d enies.?Bronchitis d enies. E mphysema d enies. C oughing d enies. C ough blood?denies. S hortness of breath d enies. W heezing d enies. C ardiovascular: Pacemaker d enies. M STEAM ENGINEER d enies. W PW d enies. C HF d enies. H eart attack d enies. S eptal defect d enies. R apid beat d enies. C hest pain d enies. A trial Fib. d enies. M urmur/Palpitations a dmits. G astrointestinal: Hemorrhoids d enies. S tomach/Abdominal pain d enies. D ark blood stool d enies. I rritable bowel d enies. C onstipation d enies. D iarrhea d enies. H ematology: Swelling a dmits. C lots d enies. V aricose Veins d enies. B ruising d enies. B leeding problem d enies. G enitourinary: Blood urine d enies. F requent/Painfu/urination/bladder control d enies. K idney stones d enies. I nfection (UTI) d enies. N ephropathy d enies. s ex trans dis (STD) d enies. P rostate d enies. M usculoskeletal: Hammertoes d enies. B unions d enies. B ack Pain d enies. M uscle Cramps/ Resting d enies. M uscle cramps / walking d enies.?Generalized aches and pains a dmits. W eakness d enies. I nteg.: Hoang d enies. S cars d enies. C orns/calluses?denies. I ngrown nails d enies. P ainful nails d enies. O pen Sores d enies. R ashes d enies. N eurologic: Difficulty sleeping d enies. B rain disorder d enies. N umbness d enies. B alance trouble d enies. C onfusion d enies. F ainting/blackouts d enies. T ingling d enies. T remors d enies. * Medical History: * Surgical History: k nee surgery, left 2010cataract surgery bilateral 2016 * Hospitalization/Major Diagno stic Procedure: N o Hospitalization History. * Family History: M other: , diagnosed with Family history of arthritis. F ather: . S pouse: alive. * Social History: T obacco Use: T obacco use other than smoking A re you an other tobacco user? N o Tobacco Control (Standard) T obacco use: N onsmoker A dditional Findings: Tobacco non-user C urrent nonsmoker M iscellaneous: C affeine: yes, 2-3 cups per day. Children: no, none. Exercise: yes, walking, exercise. Living with: spouse. Marital status: . Occupation: retired, Procurement Intern. D rug/Alcohol: A PAVAN-C (Standard) D id you have a drink containing alcohol in the past year? N o P oints 0 I nterpretation N egative * Medications: T akingPioglitazone HCl aspirin baby Atorvastatin Calcium 40 MG Tablet 1 tablet Orally Once a day glipiZIDE Levothyroxine Sodium 75 MCG Tablet 1 tablet on an empty stomach in the morning Orally Once a day Metformin & Diet Manage Prod Restasis Triamterene-HCTZ 37.5-25 MG Capsule 1 capsule in the morning Orally Once a day Taking Pioglitazone HCl Taking aspirin baby Taking Atorvastatin Calcium 40 MG Tablet 1 tablet Orally Once a day Taking glipiZIDE Taking Levothyroxine Sodium 75 MCG Tablet 1 tablet on an empty stomach in the morning Orally Once a day Taking Metformin & Diet Manage Prod Taking Restasis Taking Triamterene-HCTZ 37.5-25 MG Capsule 1 capsule in the morning Orally Once a day Not-Taking/PRNTimolol Hemihydrate Clindamycin HCl 150 MG Capsule 2 capsules Orally every 8 hrs Travatan Z 0.004 % Solution INSTILL ONE DROP IN BOTH EYES DAILY Ophthalmic Extra-Depth Diabetic Shoes with 3 Pair Custom heat-molded multi-density innersoles . . for 1 year . Dx: Medication List reviewed and reconciled with the patientNot-Taking/PRN Timolol Hemihydrate Not-Taking/PRN Clindamycin HCl 150 MG Capsule 2 capsules Orally every 8 hrs Not-Taking/PRN Travatan Z 0.004 % Solution INSTILL ONE DROP IN BOTH EYES DAILY Ophthalmic Not-Taking/PRN Extra-Depth Diabetic Shoes with 3 Pair Custom heat-molded multi-density innersoles . . for 1 year . Dx: Medication List reviewed and reconciled with the patient * Allergies: A moxicillin: rash - Allergyyes[Allergies Verified] Objective: * Vitals: H t: 5 ft 3 in, Wt: 239, BMI: 42.33, Shoe size: 8.5-9, BP: 128/65 mm Hg, BS: 92, Wt-k.41 kg. * P ast Orders: L ab:HEMOGLOBIN A1C (GLYCOHEMOGLOBIN) (Order Date - 03/19/2025) (Collection Date & Time - 03/21/2025 10:44 AM) Value Reference Range HEMOGLOBIN A1C % (HH) 5.1 * Examination: O phthalmology Referral: DIABETES EYE EXAM P rocedure Performed: N o E ye Exam not performed: N o reason specified N eurological: SENSORY: Neurological exam demonstrates, reduced light touch sensation, reduced sharp/dull pin prick discrimination , B/L, 5.07 monofilament test performed at plantar aspects of 5 varied sites per foot shows sensation, reduced , B/L. N ails: NAILS are: E longated, overgrown, dystrophic, lytic, greater than 3mm thick, discolored and friable with crumbly malodorous subungual debris, TA, T1, T2, T3, T4, T5, T6, T7, T8, T9. D ermatologic: SKIN FINDINGS: S kin exam reveals Keratotic lesion(s) located at plantar heels B/L. V ascular: DP PULSES (B): 1 /4, B/L. PT PULSES (B): 1/4, B/L. CAPILLARY FILL TIME: 3 secs. per digit. B/L. TROPHIC CONDITION-TEXTURE/ELASTICITY/TURGOR/HAIR GROWTH (B):?normal, B/L. TEMPERTURE GRADIENT (C): n ormal, B/L. PIGMENTATION: n ormal, B/L. EDEMA (C): 2/4, B/L, Ankle(s). TELANGECTASIA: moderate. VARICOSITIES: present, moderate, painful, B/L. O rthopedic: MUSCLE STRENGTH: 5 /5 all groups in a symmetrical fashion, B/L. G eneral Examination: GENERAL APPEARANCE: R balwindereals a pleasant, alert, well nourished, well-developed, well hydrated individual, who demonstrates proper attention to hygiene/body habitus, and is in no acute distress, Pt serves as own historian for office visit today. ORIENTED: p danish, place, and time. Assessment: * Assessment: 1. T ype 2 diabetes mellitus with diabetic polyneuropathy - E11.42 (Primary) 2 . T inea unguium - B35.1 Plan: * Treatment: * Procedures: D ebride Nail 6-10: Nail debridement D ue to the clinical pathology outlined in the exam findings, performance of this nail treatment is medically necessary as its management by an unskilled/untrained nonprofessional would put this patients foot and overall health at risk. Therefore, debridement to affected nail(s), as described in exam ( TA, T1, T2, T3, T4, T5, T6, T7, T8, T9, ), was performed exclusively by the physician of record to reduce/remove overall nail length, girth, thickness, subungual debris, and necrotic tissue, by manual and/or electrical means through the use of a nail nipper and/or dremel-type grinder setup operator, to a more viable healthy nail plate or bed tissue 6-10 nails in total. Silver nitrate was used for any petechial bleeding as necessary. Definitive antifungal treatment options, both pharmaceutical and surgical, have been reviewed and discussed with the patient. The patient solely prefers the use of intermittent/as needed professional debridement services for their nail condition and understands the need for additional periodic treatments to maintain effectiveness in symptomatic relief - 47448. K eratoma Treatment: Parring or Cutting of Benign Hyperkeratotic Lesion(s) ( -56) 2-4 Lesions - Due to the at risk nature of the patients medical condition as documented in the exam findings, performance of this keratoderma treatment is medically necessary as its management by an unskilled/untrained nonprofessional would put this patients foot and overall health at risk. Therefore, the benign hyperkeratotic lesions, (2) in total, locations as stated and described in the exam ( plantar heels B/L ), were pared, and/or cut utilizing a sterile 15 blade, tissue nippers, and/or power dremel instrumentation by the physician of record - 45045. * Procedure Codes: 1 1721 DEBRIDE NAIL, 6 OR MORE, Modifiers: XS 17189 TRIM SKIN LESIONS, 2 TO 4, Modifiers: XS * Follow Up: 3 Months * Images: * Sign off status: Completed true * Provider: Dayana More DPM Date: 07/10/2025 Generated for Jurgen ramsey/Valorie/Lotusitting on: 07/10/2025 02:34 PM EDT History and Physical Notes * HPI (History of Present Illness) Category Sub-Category Detail Notes Category Not es At Risk footcare Pt States Last PCP Visit: Date: Examination Category Sub-Category Detail Notes Category Not es Neurological SENSORY: Neurological exa m demonstrates, reduced light touch sensation, reduced sharp/dull pin prick discrimination , B/L, 5.07 monofilament test performed at plantar aspects of 5 varied sites per foot shows sensation, reduced , B/L Dermatologic SKIN FINDINGS: Skin exam reveal s Keratotic lesion(s) located at plantar heels B/L Orthopedic MUSCLE STRENGTH: 5/5 all groups in a symmetrical fashion, B/L General Examination GENERAL APPEARANCE: Reveals a pleasant, alert, well nourished, well-developed, well hydrated individual, who demonstrates proper attention to hygiene/body habitus, and is in no acute distress, Pt serves as own historian for office visit today ORIENTED: person, place, and t juice Ophthalmology Referral DIABETES EYE EXAM Procedure Perform ed:: No Eye Exam not performed:: No reason speci fied Vascular DP PULSES (B): 1/4, B/L PT PULSES (B): 1/4, B/L CAPILLARY FILL TIME: 3 secs. per digit. B/L TEMPERTURE GRADIENT (C): normal, B/L TROPHIC CONDITION-TEXTURE/EL ASTICITY/TURGOR/HAIR GROWTH (B): normal, B/L EDEMA (C): 2/4, B/L, Ankle(s) TELANGECTASIA: moderate VARICOSITIES: present, moderate, p ainful, B/L PIGMENTATION: normal, B/L Nails NAILS are: Elongated, overg rown, dystrophic, lytic, greater than 3mm thick, discolored and friable with crumbly malodorous subungual debris, TA, T1, T2, T3, T4, T5, T6, T7, T8, T9
--- NOTE | 2025-07-10 13:52 | A.OFFPC_ITS ---
Vital Signs 07/10/25 14:06 Height 5 ft 2.6 in Weight 245 lb BMI 44.0 BP 136/80 Respiration 16 Pulse 78 Pulse Source Pulse Oximeter Temp 97.8 F Temp Source Temporal Artery Scan Pulse Oximetry (%) 97 Oxygen Delivery Method Room Air Intake Visit Reasons: Transfer of Care Tour Narrator Required: No Accompanied by: Self / Same As Patient Allergies Amoxicillin Allergy (Unknown, Uncoded 07/10/25 13:52) rash Tobacco use date assessed: 07/10/25 Fall risk assessment: No Falls in past year Last assessed Fall Risk: 07/10/25 Dental Screening Dental Screen Date: 07/10/25 Did you have a dental visit in the last 12 months?: Yes Did you have a dental problem in the last 6 months where you did not have access to dental care?: No Was dental information given to patient?: Patient has dentist [facility] Medical History (Updated 07/10/25 @ 14:47 by Bill Martinez MD) Diabetes mellitus Abnormal stress test Surgical History History of cardiac cath H/O knee surgery Family History Mother No problems noted. Father No problems noted. Social History (Updated 07/10/25 @ 14:12 by YVON Pa) Housing: House Alcohol intake: current Alcohol intake frequency: holidays/special occasions only Patient Tobacco Use Status: Never used Tobacco service: No Current occupational status: retired Cognitive needs: No Hearing needs: No Vision needs: Yes (reading glasses) Questionnaire PHQ-9 Over the last 2 weeks, how often have you been bothered by any of the following problems? 1. Little interest or pleasure in doing things: not at all 2. Feeling down, depressed, or hopeless: not at all 3. Trouble falling or staying asleep, or sleeping too much: not at all 4. Feeling tired or having little energy: not at all 5. Poor appetite or overeating: not at all 6. Feeling bad about yourself - or that you are a failure or have let yourself or your family down: not at all 7. Trouble concentrating on things, such as reading the newspaper or watching television: not at all 8. Moving or speaking so slowly that other people could have noticed. Or the opposite - being so fidgety or restless that you have been moving around a lot more than usual: not at all 9. Thoughts that you would be better off or of hurting yourself in some way: not at all Total score: 0 Source: Developed by Drs. Jim Costello, Deepthi Gil, Enrrique Whitney and colleagues, with an educational nick from [employer]. Thrive Questionnaire Date Thrive assessed: 07/10/25 I am a: Patient What is your living situation today?: I have a steady place to live Within the past 12 months, did the food you bought not last and you didn't have the money to get more?: Never true Within the past 12 months, did you worry whether your food would run out before you got money to buy more?: Never true Do you have trouble paying for medicines?: No Do you have trouble getting transportation to medical appointments?: No Do you have trouble paying your heating and electricity bill?: No Do you have trouble taking care of your child, family member or friend?: No Do you have trouble with day-to-day activities such as bathing, preparing meals, shopping, managing finances, etc.?: No Are you currently unemployed and looking for a job?: No Are you interested in more education?: No Please select the resources that you would like help with: None THRIVE Score: 0 AUDIT C Alcohol Use Questionnaire (AUDIT-C) 1. How often do you have a drink containing alcohol?: Monthly or less 2. How many drinks containing alcohol do you have on a typical day when you are drinking?: 1 or 2 3. How often do you have six or more drinks on one occasion?: Never Total Score: 1 BOGDAN-7 AMB Questionnaire BOGDAN-7 Date BOGDAN - 7 assessed: 07/10/25 Feeling nervous, anxious, or on edge: 0 = Not at all Not being able to stop or control worryin = Not at all Worrying too much about different things: 0 = Not at all Trouble relaxin = Not at all Being so restless that it is hard to sit still: 0 = Not at all Becoming easily annoyed or irritable: 0 = Not at all Feeling afraid as if something awful might happen: 0 = Not at all Total BOGDAN-7 score (0-4 normal; 5-9 mild; 10-14 moderate; 15-21 severe): 0 Source: Developed by Drs. Jim Costello, Deepthi Gil, Enrrique Whitney and colleagues, with an educational nick from [employer]. Physical exam (Primary Care) Vital Signs: Last Vital Signs Temp 97.8 F 07/10/25 14:06 Pulse 78 07/10/25 14:06 Resp 16 07/10/25 14:06 BP 136/80 07/10/25 14:06 Pulse Ox 97 07/10/25 14:06 Oxygen Delivery Method Room Air 07/10/25 14:06 BMI result Body Mass Index 44.0 Tobacco/Smoking Status: Tobacco use Status Tobacco use date assessed 07/10/25 07/10/25 13:56 Patient Tobacco Use Status Never used Tobacco 07/10/25 14:12 PHQ-9: PHQ-9 Score PHQ-9: Total score 0 07/10/25 14:13 Thrive Assessment: Date of Thrive Assessment Date Thrive assessed 07/10/25 07/10/25 13:56 Coding Level of Care Code New Pt Level 4 (62807) Complex EM visit Add On G2211 Diagnoses Hypertension I10 Diabetes mellitus E11.9 Assessment & Plan Assessment & Plan (1) Hypertension: Code(s): I10 - Essential (primary) hypertension Category: Medical Plan: BW drawn. Will call with results (2) Diabetes mellitus: Code(s): E11.9 - Type 2 diabetes mellitus without complications Category: Medical Plan: A1c ordered. Plan History of Present Illness - The patient is a 79-year-old female presenting with ongoing health maintenance and management of existing conditions. - Heart issues: She is under the care of a president consumer [employer] company and reports that her last evaluation was satisfactory. - Urinary incontinence: She manages this condition by wearing pads when necessary and has not sought specialist care. - Stress incontinence: She has been advised to consult her dog food dough mixer if the condition worsens. - Preventative care: She is due for thyroid function testing as part of her routine health maintenance. Social History - Functional status: The patient is able to perform daily activities, including driving during the day and grocery shopping with the aid of a cart. - Employment: Previously worked for [employer]. - Family status: , no children. - Travel history: Grew up in [place] and used to travel there annually. Review of Systems - Cardiovascular: Denies recent issues, last president [employer] company visit was [facility]. - Genitourinary: Reports urinary incontinence, managed with pads. - Neurological: Denies any pain or discomfort in the stomach. Physical Exam General: Cooperative and healthy appearing Nutritional Appearance: Well nourished Orientation/consciousness: Patient oriented x3 Limitations: No limitations Head: Normal to inspection General: Appearance normal, both eyes and all related structures Neck: Normal visual inspection Chest: Normal palpation of entire chest wall Respiratory: Patient breathes okay. ormal respiratory effort Neurology: Patient oriented x3, able to function and do all activities, drives during the day but not at night, uses a cart as a walker for support while shopping. Results Plan 1. Heart Issues - Continue follow-up with president consumer [employer] company as previously scheduled. 2. Urinary Incontinence - Consider consultation with a urologist if symptoms worsen. 3. Stress Incontinence - Advised to contact dog food dough mixer if condition becomes problematic. 4. Preventative Care: Blood Work For Thyroid Function - Scheduled for thyroid function testing as part of routine health maintenance. Discussion Notes During the visit, we discussed the importance of continuing follow-up with the president consumer [employer] company for heart issues. I advised the patient to consider seeing a urologist if urinary incontinence worsens and to contact her dog food dough mixer re garding stress incontinence if it becomes problematic. We also scheduled blood work for thyroid function as part of her routine health maintenance. Patient Instructions - Continue follow-up with your president consumer [employer] company as scheduled. - Consider seeing a urologist if urinary incontinence worsens. - Contact your dog food dough mixer if stress incontinence becomes problematic. - Complete blood work for thyroid function as scheduled. Orders: Orders Complete Blood Count no Diff Today I10 - Essential (primary) hypertension Lipid Panel Today I10 - Essential (primary) hypertension Liver Panel Today I10 - Essential (primary) hypertension UA and rflx microscopic Today I10 - Essential (primary) hypertension Basic Metabolic Panel Today I10 - Essential (primary) hypertension Thyroid Stimulating Hormone Today I10 - Essential (primary) hypertension Hemoglobin A1c Today E11.9 - Type 2 diabetes mellitus without complications
[2025-07-10 14:06] VITALS: BP 136/80; PULSE 78; RESP 16; TEMP 36.6; O2SAT 97; BMI 44.0
--- OUTSIDE RECORDS SUMMARY | 2025-07-10 14:35 | XMS_ITS | Patient Health Record ---
Author Organization [facility] Address [address] [facility] [place] [address] Care Team Providers Care Disability Representative Name Role Phone Bill Martinez Primary Care Provider Bessie Ospina Unavailable [phone] Denny Graham Unavailable [phone] Allergies Allergen (clinical drug ingredient) Drug/Non Drug Allergy documented on EMR Reaction Allergy Type Onset Date Status amoxicillin Amoxicillin rash Drug Allergy Act brandon Results Component Value Reference Range Notes HEMOGLOBIN A1C (GLYCOHEMOGLO BIN) Reviewed date:09/07/2024 12:35:55 PM Interpretation: Performing Lab: Notes/Report: TOTAL HEMOGLOBIN (HGBA1C) 5.1 HEMOGLOBIN A1C (GLYCOHEMOGLO BIN) Reviewed date:07/10/2025 10:45:27 AM Interpretation: Performing Lab: Notes/Report: HEMOGLOBIN A1C % (HH) 5.1 Reason For Referral No Information Medications Medication SIG (Take, Route, Frequency, Duration) Notes Start Date End Date Status Pioglitazone HCl Act brandon Extra-Depth Diabetic Shoes with 3 Pair Custom heat-molded multi-density innersoles . for 1 year . Dx:; Duration: . 04/04/2015 Not-Taking aspirin baby Active Atorvastatin Calcium 40 MG 1 tablet Oral ly Once a day; Duration: 30 day(s) Active glipiZIDE Active Levothyroxine Sodium 75 MCG 1 tablet on an empty stomach in the morning Orally Once a day; Duration: 30 day(s) Active Metformin & Diet Manage Prod Active Restasis Active Triamterene-HCTZ 37.5-25 MG 1 capsule in the morning Orally Once a day; Duration: 30 day(s) Active Timolol Hemihydrate Not-Taking Clindamycin HCl 150 MG 2 capsules Orally every 8 hrs; Duration: 5 day(s) 04/19/2018 Not-Taking Travatan Z 0.004 % INSTILL ONE DROP IN BOTH EYES DAILY Ophthalmic; Duration: 90 Not-Taking Immunizations Vaccine Route Administration Date Status Comme nts COVID-19 Moderna Vaccine Unknown 01/23/2021 Administere d 1st 12/27/2020 Influenza Unknown 11/05/2017 Refused Influenza Unknown 08/04/2018 Refused Influenza Unknown 07/08/2020 Refused Influenza Unknown 07/16/2022 Administered Influenza Unknown 07/16/2023 Administered Influenza Unknown 07/17/2024 Administered Social History Tobacco Use: Social History [...] ast year? No Points 0 Interpretation Negative Problems Problem Type SNOMED Code ICD Code Onset Dates Problem Status W/U Status Risk Notes Problem Tinea unguium (202283632) Tinea unguium (B35.1) Active confirmed Problem Type 2 diabetes mellitus with diabetic polyneuropathy (E11.42) Active confirmed Vital Signs Blood pressure diastolic 65 mm Hg 07/10/2025 Height 5 ft 3 in in 07/10/2025 Blood pressure systolic 128 mm Hg 07/10/2025 Weight 239 lbs 07/10/2025 BMI 42.33 kg/m2 07/10/2025 Procedures Procedure Date Ordered Date Performed Result Body Sit e 65546-HCKLTDM NAIL, 6 OR MORE 04/18/2025 N/A 52191-YYHD SKIN LESIONS, 2 TO 4 04/18/2025 N/A 05261-CGHIDFS NAIL, 6 OR MORE 07/10/2025 N/A 72311-UKJR SKIN LESIONS, 2 TO 4 07/10/2025 N/A Encounters Encounter Location Date Provider Diagnosis [facility] [place] [address] [place] [address] 09/07/2024 Denny Graham Tinea unguium B35.1 ; Pain in right toe(s) M79.674 ; Pain in left toe(s) M79.675 ; Type 2 diabetes mellitus with diabetic polyneuropathy E11.42 ; Metatarsalgia, left foot M77.42 ; Xerosis cutis L85.3 ; Venous insufficiency I87.2 ; Venous insufficiency of both lower extremities I87.2 and Ingrowing nail L60.0 [facility] [place] [address] [place] [address] 04/18/2025 Bessie More Type 2 diabetes mellitus with diabetic polyneuropathy E11.42 and Tinea unguium B35.1 [facility] [address] [facility] [address] [place] [address] 07/10/2025 Bessie More Type 2 diabetes mellitus with diabetic polyneuropathy E11.42 and Tinea unguium B35.[address] [address] 02/22/2025 Bessie More [address] [address] 04/06/2025 Bessie More Assessments Encounter Date Diagnosis (ICD Code) Assessment Notes Treatment Notes Treatment Clinical Notes Section Notes 09/07/2024 Tinea unguium (ICD-10 - B35.1) 04/18/2025 Type 2 diabetes mellitus with diabetic polyneuropathy (ICD-10 - E11.42) 04/18/2025 Tinea unguium (ICD-10 - B35.1) 07/10/2025 Type 2 diabetes mellitus with diabetic polyneuropathy (ICD-10 - E11.42) 07/10/2025 Tinea unguium (ICD-10 - B35.1) 09/07/2024 Pain [...] Test Name Order Date Glucose Fasting 04/04/2015 85021-JOGBXXU NAIL, 6 OR MORE 06/13/2015 90141-AKKSZJM NAIL, 6 OR MORE 04/04/2015 55395-BGOLPRG NAIL, 6 OR MORE 08/15/2015 42724-MYSUZDY NAIL, 6 OR MORE 11/05/2015 50113-QJYWIDU NAIL, 6 OR MORE 02/24/2016 01759-TJLUHEC NAIL, 6 OR MORE 05/04/2016 55181-LTEINWC NAIL, 6 OR MORE 08/05/2016 05478-ETUOTRD NAIL, 6 OR MORE 02/23/2017 46763-YRHKGET NAIL, 6 OR MORE 11/03/2016 05234-SDRKOPH NAIL, 6 OR MORE 05/28/2017 38412-MNZLPAW NAIL, 6 OR MORE 08/20/2017 21879-KJRBWAF NAIL, 6 OR MORE 11/05/2017 89608-ORHWAZA NAIL, 6 OR MORE 03/07/2018 56142-WNDIGZX NAIL, 6 OR MORE 10/31/2018 72401-CMZSKMP NAIL, 6 OR MORE 05/26/2018 77974-VBILQMO NAIL, 6 OR MORE 08/04/2018 17909-FDJZZPL NAIL, 6 OR MORE 04/18/2025 52914-NBCPKYV NAIL, 6 OR MORE 07/10/2025 74723-Omqlxlgj Plate 03/07/2018 62747-Cpuqakub Plate 05/28/2017 49533-Uhskdxvq Plate 11/05/2017 53748-Zheqddoj Plate 08/20/2017 64315-Wanydmpd Plate 11/03/2016 94703-Ofgafeeo Plate 02/23/2017 86920-Zypqrbhy Plate 08/05/2016 73251-Lzoaenhj Plate 05/04/2016 01656-Kzbgwslx Plate 02/24/2016 12596-Chzwjdqq Plate 08/15/2015 03817-Sakljatp Plate 09/01/2013 33649-Enkngeeu Plate 06/13/2015 05166-Dqkfijjv Plate Each Additional 11/2014 64894- Debride <25 sq cm 04/18/2015 72094- Debride <25 sq cm 09/21/2013 67026 I&D ABSCESS- SIMPLE,SINGLE 015 50705 I&D ABSCESS- SIMPLE,SINGLE 013 97918 I&D ABSCESS- SIMPLE,SINGLE 017 18737-YTIX SKIN LESIONS, 2 TO 4 11/05/20 17 32863-VTHB SKIN LESIONS, 2 TO 4 11/03/20 16 48405-PYQO SKIN LESIONS, 2 TO 4 08/20/20 17 08883-QUAF SKIN LESIONS, 2 TO 4 05/04/20 16 69039-CQPW SKIN LESIONS, 2 TO 4 08/05/20 16 40149-RMFB SKIN LESIONS, 2 TO 4 02/24/20 17 69587-PFCA SKIN LESIONS, 2 TO 4 05/28/20 17 29247-JEIG SKIN LESIONS, 2 TO 4 08/15/20 15 53878-TQGC SKIN LESIONS, 2 TO 4 02/24/20 16 69819-RDQO SKIN LESIONS, 2 TO 4 11/05/20 15 94213-SZNB SKIN LESIONS, 2 TO 4 04/04/20 15 58469-TGTZ SKIN LESIONS, 2 TO 4 06/13/20 15 45888-UWBI SKIN LESIONS, 2 TO 4 03/07/20 18 05674-YKHK SKIN LESIONS, 2 TO 4 05/26/20 18 33562-URFX SKIN LESIONS, 2 TO 4 03/06/20 19 34931-CZTD SKIN LESIONS, 2 TO 4 06/07/20 19 31306-RBLE SKIN LESIONS, 2 TO 4 09/13/20 19 98773-GMXE SKIN LESIONS, 2 TO 4 04/04/20 20 36957-PJFY SKIN LESIONS, 2 TO 4 07/08/20 20 12160-BCCJ SKIN LESIONS, 2 TO 4 10/21/20 20 68321-UWFD SKIN LESIONS, 2 TO 4 03/31/20 21 67418-IYQO SKIN LESIONS, 2 TO 4 07/08/20 21 51996-FBFB SKIN LESIONS, 2 TO 4 10/21/20 21 02999-AJKJ SKIN LESIONS, 2 TO 4 07/10/20 25 23127-SCUG SKIN LESIONS, 2 TO 4 04/18/20 25 59187-BPNO SKIN LESIONS, 2 TO 4 10/31/20 18 28534-ROIY SKIN LESIONS, 2 TO 4 08/04/20 18 42753-MATQXNME OF HEMATOMA/FLUID 018 Next Appt Details Provider Name:Bessie capone, 10/17/2025 11:15:00 AM, [address] [facility], [place], [address], Insurance Providers Payer Name Payer Address Payer Phone Subscriber Number Group Number Insured Name Patient Relationship to Insured Coverage Start Date Coverage End Date Medicare National Govt Svcs Inc [address] [place] [address] [id number] Pamela Cronin Self - patient is the insured 2 [employer] Blue Shield [address] [place] [address] [id number] Moy Cronin Spouse - patient is the spouse of the insured Medical (General) History Medical History History ICD Code chicken pox cholesterol Diabetic type ll high blood pressure measles mumps thyroid disorder Arthritis Surgical History Surgery Date(Month/Year) knee surgery, left 2010 cataract surgery bilateral 2016
== END 2025-07-10 14:44 | disposition home or self-care (01) ==
LOC: HO.HMCSH 13:34
PROVIDERS: PCP Internal Medicine; Visit Provider Internal Medicine
DX: I10 Essential (primary) hypertension (principal); E11.9 Type 2 diabetes mellitus without complications

== ENCOUNTER → 2025-07-10 13:34 | Outpatient (BNVA) | payer MEDICARE, SELFPAY | PROVIDERS: PCP Internal Medicine; Visit Provider Internal Medicine | DX: I10 Essential (primary) hypertension (principal); E11.9 Type 2 diabetes mellitus without complications | CPT/HCPCS: 99202 ==

== ENCOUNTER 2025-07-18 07:14 | Outpatient (REF) | payer MEDICARE, SELFPAY ==
--- OUTSIDE RECORDS SUMMARY | 2025-02-26 09:30 | XMS_ITS ---
Author Organization [facility] Address [address] [place] [address] Care Team Providers Care Renewals Manager Name Role Phone Bill Martinez Primary Care Provider Bessie Ospina [phone] Encounters Encounter Location Date Provider Diagnosis [facility] [address] [place] [address] 02/26/2025 Bessie More Plan Of Treatment Next Appt Details Provider Name:Bessie capone, 10/17/2025 11:15:00 AM, [address] [place], [address], Progress Notes * Pamela CRONIN CDOB:[birth year] (79 yo F)Acc No.[id number]:02/26/2025 Progress Note Patient: Pamela WINTERS Provider: Dayana More DPM :1945 A ge:79 Y S ex:Female Date:02/26/2025 Address:[address] [place], [place] [id number] Pcp:Bill Martinez Subjective: * Chief Complaints: * [...] 0 02/26/2025 Generated for Printi ng/Valorie/Lotusitting on: 0 07/18/2025 07:17 AM EDT
--- OUTSIDE RECORDS SUMMARY | 2025-04-06 10:00 | XMS_ITS ---
Author Organization [facility] Address [address] [place] [address] Care Team Providers Care Ict Sales Assistant Name Role Phone Bill Martinez Primary Care Provider Bessie Ospina [phone] Encounters Encounter Location Date Provider Diagnosis [facility] [address] 04/06/2025 Bessie More Plan Of Treatment Next Appt Details Provider Name:Bessie capone, 10/17/2025 11:15:00 AM, [address] [place], [address], Progress Notes * Pamela CRONIN CDOB:[birth year] (79 yo F)Acc No.[id number]:04/06/2025 Progress Note Patient: Pamela WINTERS Provider: Dayana More DPM :1945 A ge:79 Y S ex:Female Date:04/06/2025 Address:[address] [place], [place] [id number] Pcp:Bill Martinez Subjective: * Chief Complaints: * * Medical History: Objective: * Vitals: Assessment: Plan: * Treatment: * Images: * The named appointment provid er may or may not be the originator of this progress note, and it is not deemed complete until electronically signed by the appointment provider. Sign off status: Pending * Provider: Dayana More DPM Date: 04/06/2025 Generated for Jurgen ramsey/Valorie/Lotusitting on: 0 07/18/2025 07:17 AM EDT
--- OUTSIDE RECORDS SUMMARY | 2025-07-18 07:17 | XMS_ITS | Patient Health Record ---
Author Organization [facility] Address [address] [place] [address] Care Team Providers Care Seam Finisher Name Role Phone Bill Martinez Primary Care Provider Bessie Ospina Unavailable [phone] Denny Graham Unavailable [phone] Allergies Allergen (clinical drug ingredient) Drug/Non Drug [...] Vaccine Route Administration Date Status Comme nts Influenza Unknown 11/05/2017 Refused Influenza Unknown 08/04/2018 Refused Influenza Unknown 07/08/2020 Refused Influenza Unknown 07/16/2022 Administered Influenza Unknown 07/16/2023 Administered Influenza Unknown 07/17/2024 Administered COVID-19 Moderna Vaccine Unknown 01/23/2021 Administere d 1st 12/27/2020 Social History Tobacco Use: Social History Observation [...] W/U Status Risk Notes Problem Tinea unguium (249746922) Tinea unguium (B35.1) Active confirmed Problem Polyneuropathy due to type 2 diabetes mellitus (726193958) Type 2 diabetes mellitus with diabetic polyneuropathy (E11.42) Active confirmed Vital Signs Blood pressure diastolic 65 mm Hg 07/10/2025 Height 5 ft 3 in in 07/10/2025 Blood pressure systolic 128 mm Hg 07/10/2025 Weight 239 lbs 07/10/2025 BMI 42.33 kg/m2 07/10/2025 Procedures Procedure Date Ordered Date Performed Result Body Sit e 90351-YYAJVHV NAIL, 6 OR MORE 04/18/2025 N/A 16202-LHPY SKIN LESIONS, 2 TO 4 04/18/2025 N/A 15715-TJEIYSH NAIL, 6 OR MORE 07/10/2025 N/A 59111-UCMC SKIN LESIONS, 2 TO 4 07/10/2025 N/A Encounters Encounter Location Date Provider Diagnosis [facility] [place] [address] [place] [address] 09/07/2024 Denny Graham Tinea unguium B35.1 ; Pain in right toe(s) M79.674 ; Pain in left toe(s) M79.675 ; Type 2 diabetes mellitus with diabetic polyneuropathy E11.42 ; Metatarsalgia, left foot M77.42 ; Xerosis cutis L85.3 ; Venous insufficiency I87.2 ; Venous insufficiency of both lower extremities I87.2 and Ingrowing nail L60.0 [facility] [address] [place] [address] 04/18/2025 Bessie More Type 2 diabetes mellitus with diabetic polyneuropathy E11.42 and Tinea unguium B35.1 [facility] [address] [facility] [address] [place] [address] 07/10/2025 Bessie More Type 2 diabetes mellitus with diabetic polyneuropathy E11.42 and Tinea unguium B35.[address] [address] 02/22/2025 Bessie Argenis [address] [address] 04/06/2025 Bessie More Assessments Encounter Date Diagnosis [...] Test Name Order Date Glucose Fasting 04/04/2015 55042-FAKUDTH NAIL, 6 OR MORE 06/13/2015 28946-SPKIKTH NAIL, 6 OR MORE 04/04/2015 95038-PUKEPRL NAIL, 6 OR MORE 08/15/2015 05984-QEEKZAS NAIL, 6 OR MORE 11/05/2015 82686-MSYKIEH NAIL, 6 OR MORE 02/24/2016 16180-QEVQPXG NAIL, 6 OR MORE 05/04/2016 54893-DRAKLZI NAIL, 6 OR MORE 08/05/2016 70449-ZTLSANZ NAIL, 6 OR MORE 02/23/2017 82764-BCPGJGH NAIL, 6 OR MORE 11/03/2016 81764-TJKAHUE NAIL, 6 OR MORE 05/28/2017 88762-MBYFIXJ NAIL, 6 OR MORE 08/20/2017 44662-YCFUZYC NAIL, 6 OR MORE 11/05/2017 46850-ULUAIEM NAIL, 6 OR MORE 03/07/2018 70674-SKTBWQH NAIL, 6 OR MORE 10/31/2018 02429-TDHXVXF NAIL, 6 OR MORE 05/26/2018 93255-AZJCQRU NAIL, 6 OR MORE 08/04/2018 56457-JJRNAWL NAIL, 6 OR MORE 04/18/2025 58446-QJXSHUT NAIL, 6 OR MORE 07/10/2025 19395-Tsbcudcn Plate 03/07/2018 45673-Rshasowr Plate 05/28/2017 83723-Wuwoxdwq Plate 11/05/2017 06290-Nsyuxudi Plate 08/20/2017 70295-Vfifiawk Plate 11/03/2016 89151-Qwesdbtd Plate 02/23/2017 55378-Utjouoeg Plate 08/05/2016 08968-Osaximip Plate 05/04/2016 80949-Dxeipgpg Plate 02/24/2016 93910-Umrpkxxm Plate 08/15/2015 50167-Sdjbeomb Plate 09/01/2013 64008-Ztzneekl Plate 06/13/2015 25594-Ygxcgyoq Plate Each Additional 11/2014 12173- Debride <25 sq cm 04/18/2015 17819- Debride <25 sq cm 09/21/2013 52129 I&D ABSCESS- SIMPLE,SINGLE 015 55762 I&D ABSCESS- SIMPLE,SINGLE 013 33662 I&D ABSCESS- SIMPLE,SINGLE 017 93965-ABJJ SKIN LESIONS, 2 TO 4 11/05/20 17 72680-TRWL SKIN LESIONS, 2 TO 4 11/03/20 16 96495-JYMY SKIN LESIONS, 2 TO 4 08/20/20 17 47385-AGQG SKIN LESIONS, 2 TO 4 05/04/20 16 89770-GEXZ SKIN LESIONS, 2 TO 4 08/05/20 16 25052-XVKD SKIN LESIONS, 2 TO 4 02/24/20 17 61344-UIZL SKIN LESIONS, 2 TO 4 05/28/20 17 43319-VRUC SKIN LESIONS, 2 TO 4 08/15/20 15 34830-IQBS SKIN LESIONS, 2 TO 4 02/24/20 16 55101-NXTB SKIN LESIONS, 2 TO 4 11/05/20 15 33543-RFPV SKIN LESIONS, 2 TO 4 04/04/20 15 27544-EICT SKIN LESIONS, 2 TO 4 06/13/20 15 50681-JFDG SKIN LESIONS, 2 TO 4 03/07/20 18 86844-CFSW SKIN LESIONS, 2 TO 4 05/26/20 18 11822-EEYH SKIN LESIONS, 2 TO 4 03/06/20 19 60921-IEIR SKIN LESIONS, 2 TO 4 06/07/20 19 68990-TOUS SKIN LESIONS, 2 TO 4 09/13/20 19 48537-FVYT SKIN LESIONS, 2 TO 4 04/04/20 20 65836-COGM SKIN LESIONS, 2 TO 4 07/08/20 20 56141-ZQDH SKIN LESIONS, 2 TO 4 10/21/20 20 37323-FSGT SKIN LESIONS, 2 TO 4 03/31/20 21 38150-LLZY SKIN LESIONS, 2 TO 4 07/08/20 21 85447-MGIY SKIN LESIONS, 2 TO 4 10/21/20 21 27446-ZXLT SKIN LESIONS, 2 TO 4 07/10/20 25 79514-EJLF SKIN LESIONS, 2 TO 4 04/18/20 25 76654-LZFF SKIN LESIONS, 2 TO 4 10/31/20 18 05517-TINB SKIN LESIONS, 2 TO 4 08/04/20 18 79200-BPFNINWI OF HEMATOMA/FLUID 018 Next Appt Details Provider Name:Bessie capone, 10/17/2025 11:15:00 AM, [address] [facility], [place], [address], Insurance Providers Payer Name Payer Address Payer Phone Subscriber Number Group Number Insured Name Patient Relationship to Insured Coverage Start Date Coverage End Date Medicare National Govt Svcs Inc [address] [place] [address] [id number] Pamela Cronin Self - patient is the insured 2 [employer] Blue Shield [address] [place] [address] [id number] Moy Cronin Spouse - patient is the spouse of the insured Medical (General) History Medical History History ICD Code chicken pox cholesterol Diabetic type ll high blood pressure measles mumps thyroid disorder Arthritis Surgical History Surgery Date(Month/Year) knee surgery, left 2010 cataract surgery bilateral 2016
[2025-07-18 08:48] LABS: Hematocrit 36.8 % (37.0-47.0); Hemoglobin 11.6 g/dl (12.0-16.0); Mean Corpuscular HGB Conc 31.5 g/dl (31.0-35.0); Mean Corpuscular Hemoglobin 28.7 pg (27.0-33.0); Mean Corpuscular Volume 91.1 fL (80.0-98.0); NRBC Abs Auto 0.000 X10*3/uL (0.0-0.012); NRBC Pct Auto 0.0 /100WBC (0.0-0.2); Platelet Count 168 X10*3/uL (160-400); Red Blood Count 4.04 X10*6/uL (4.20-5.50); White Blood Count 4.8 X10*3/uL (4.8-10.8)
[2025-07-18 08:52] LABS: Hemoglobin A1C 122.5187 umol/L; Total Hemoglobin (HGBA1C) 3040.6642 umol/L
[2025-07-18 09:09] LABS: Appearance Urine Clear; Glucose Urine UA Negative (Negative); PH 6.5 (5.0-9.0); Specific Gravity - Urine 1.020 (1.005-1.025)
[2025-07-18 09:39] LABS: Alanine Aminotransferase 15 U/L (0-31); Albumin Level 4.6 g/dL (3.5-5.0); Alkaline Phosphatase 84 U/L (39-117); Anion Gap 11 (12-20); Aspartate Amino Transferase 26 U/L (5-31); Blood Urea Nitrogen 21 mg/dL (9-16); Calcium 9.8 mg/dL (8.4-10.2); Carbon Dioxide 33 mmol/L (22-29); Chloride 104 mmol/L (96-108); Cholesterol 166 mg/dL (<200); Estimated Glomerular Filt Rate 55; HDL Cholesterol 63 mg/dL (>40); Potassium 4.2 mmol/L (3.3-5.1); Sodium 144 mmol/L (135-145); Total Protein 7.5 g/dL (6.5-8.0); Triglycerides 69 mg/dL (<150)
[2025-07-18 09:42] LABS: Thyroid Stimulating Hormone 5.87 uIU/mL (0.32-4.0)
== END 2025-07-18 07:15 | disposition home or self-care (01) ==
LOC: HO.LAB 07:14
PROVIDERS: PCP Internal Medicine; Visit Provider Internal Medicine
DX: I10 Essential (primary) hypertension (principal); E11.9 Type 2 diabetes mellitus without complications
CPT/HCPCS: 36415; 80048; 80061; 80076; 81003; 83036; 84443; 85027

== ENCOUNTER 2025-09-13 10:10 | Outpatient (AMB) | payer MEDICARE, SELFPAY ==
--- OUTSIDE RECORDS SUMMARY | 2025-02-26 09:30 | XMS_ITS ---
[facility] Address [address] [place] [address] Care Team Providers Care Shingle Weaver Name Role Phone Bill Martinez Primary Care Provider Bessie Ospina [phone] Encounters Encounter Location Date Provider Diagnosis [facility] [address] [place] [address] 02/26/2025 Bessie More Plan Of Treatment Next Appt Details Provider Name:Bessie capone, 10/17/2025 11:15:00 AM, [address] [place], [address], Progress Notes * Pamela CRONIN CDOB:[birth year] (79 yo F)Acc No.[id number]:02/26/2025 Progress Note Patient: Pamela WINTERS Provider: Dayana More DPM :1945 A ge:79 Y S ex:Female Date:02/26/2025 Address:[address] [place], [place] [id number] Pcp:Bill Martinez Subjective: * Chief Complaints: * * Medical History: Objective: * Vitals: Assessment: Plan: * Treatment: * Images: * The named appointment provid er may or may not be the originator of this progress note, and it is not deemed complete until electronically signed by the appointment provider. Sign off status: Pending * Provider: Dayana More DPM Date: 0 02/26/2025 Generated for Printi ng/Valorie/Lotusitting on: 1 12:16 PM EDT
--- OUTSIDE RECORDS SUMMARY | 2025-04-06 10:00 | XMS_ITS ---
Author Organization [facility] Address [address] [place] [address] Care Team Providers Care Boom Supervisor Name Role Phone Bill Martinez Primary Care Provider Bessie Ospina [phone] Encounters Encounter [facility] Date [facility] [address] 04/06/2025 Bessie More Plan Of Treatment Next Appt Details Provider Name:Bessie capone, 10/17/2025 11:15:00 AM, [address] [place], [address], Progress Notes * Pamela CRONIN CDOB:[birth year] (79 yo F)Acc No.[id number]:04/06/2025 Progress Note Patient: Pamela WINTERS Provider: Dayana More DPM :1945 A ge:79 Y S ex:Female Date:04/06/2025 Address:[address] [place], [place] [id number] Pcp:Bill Martinez Subjective: * Chief Complaints: * * Medical History: Objective: * Vitals: Assessment: Plan: * Treatment: * Images: * The named appointment provid er may or may not be the originator of this progress note, and it is not deemed complete until electronically signed by the appointment provider. Sign off status: Pending * Provider: Dayana More DPM Date: 04/06/2025 Generated for Jurgen ramsey/Valorie/Soto on: 1 12:16 PM EDT
--- NOTE | 2025-09-13 10:27 | AM.OFFVISNUR ---
Intake Visit Reasons: Flu vaccine Allergies Amoxicillin Allergy (Unknown, Uncoded 07/10/25 13:52) rash Office Procedures Flu Questionnaire Does the patient have a severe egg allergy?: No Does the patient have severe life threatening allergies?: No Does the patient have a fever or illness today?: No Has the patient ever had Guillain-Fombell Syndrome?: No Has the patient ever had any past reaction to a flu shot?: No Immunizations Fluarix 5813-5282 (PF) 45 mcg (15 mcg x 3)/0.5 mL IM syringe Performing Provider: Bill Martinez MD [facility]forming [facility] [place] Administered by: YVON Pa on 09/13/25 10:29 Dose Route Admin Location Dispensed Lot Number Expiration Date [facility] Light Bulb Assembler 0.5 mL IM Left Deltoid 0.5 mL [id number] 05/14/26 27237-494-21 [facility] V[facility] Given Date VIS Provided VIS Publication Date 09/13/25 Single Vaccine 24 Eligibility Eligibility Date Funding Source Not [facility] Eligible 09/13/25 Private Assessment & Plan Assessment & Plan Orders: Orders Influenza [id number] Immunization Today Z23 - Encounter for immunization Coding
--- OUTSIDE RECORDS SUMMARY | 2025-09-13 12:17 | XMS_ITS | Patient Health Record ---
Author Organization [facility] Address [address] [facility] [place] [address] Care Team Providers Care Tool And Die Repair Name Role Phone Bill Martinez Primary Care Provider Bessie Ospina Unavailable [phone] Allergies Allergen (clinical drug ingredient) Drug/Non Drug Allergy documented on EMR Reaction Allergy Type Onset Date Status amoxicillin Amoxicillin rash Drug Allergy Act brandon Results Component Value Reference Range Notes HEMOGLOBIN A1C (GLYCOHEMOGLO BIN) Reviewed date:07/10/2025 10:45:27 [...] W/U Status Risk Notes Problem Tinea unguium (783707196) Tinea unguium (B35.1) Active confirmed Problem Polyneuropathy due to type 2 diabetes mellitus (868190565) Type 2 diabetes mellitus with diabetic polyneuropathy (E11.42) Active confirmed Vital Signs Blood pressure diastolic 65 mm Hg 07/10/2025 Height 5 ft 3 in in 07/10/2025 Blood pressure systolic 128 mm Hg 07/10/2025 Weight 239 lbs 07/10/2025 BMI 42.33 kg/m2 07/10/2025 Procedures Procedure Date Ordered Date Performed Result Body Sit e 98315-FTKCJRE NAIL, 6 OR MORE 04/18/2025 N/A 66042-WMIG SKIN LESIONS, 2 TO 4 04/18/2025 N/A 78937-CSXBIFU NAIL, 6 OR MORE 07/10/2025 N/A 33435-QYOI SKIN LESIONS, 2 TO 4 07/10/2025 N/A Encounters Encounter Location Date [facility] [address] [place] [address] 04/18/2025 Bessie More Type 2 diabetes mellitus with diabetic polyneuropathy E11.42 and Tinea unguium B35.1 [facility] [address] [place] [address] 07/10/2025 Bessie More Type 2 diabetes mellitus with diabetic polyneuropathy E11.42 and Tinea unguium B35.1 [facility] [address] [address] 02/22/2025 Bessie [facility] [address] 04/06/2025 Bessie More Assessments Encounter Date Diagnosis (ICD Code) Assessment Notes Treatment Notes Treatment Clinical Notes Section Notes 04/18/2025 Type 2 diabetes mellitus with diabetic polyneuropathy (ICD-10 - E11.42) 04/18/2025 Tinea unguium (ICD-10 - B35.1) 07/10/2025 Type 2 diabetes mellitus with diabetic polyneuropathy (ICD-10 - E11.42) 07/10/2025 Tinea unguium (ICD-10 - B35.1) Plan Of Treatment Pending Test Test Name Order Date Glucose Fasting 04/04/2015 44886-YFKSTJD NAIL, 6 OR MORE 06/13/2015 55534-GNNTKFF NAIL, 6 OR MORE 04/04/2015 25928-PFHPYDP NAIL, 6 OR MORE 08/15/2015 55995-BSPZMGZ NAIL, 6 OR MORE 11/05/2015 31093-KIDLMHF NAIL, 6 OR MORE 02/24/2016 33533-OZGUXJS NAIL, 6 OR MORE 05/04/2016 35291-OOQPJNP NAIL, 6 OR MORE 08/05/2016 93579-YRTJNYG NAIL, 6 OR MORE 02/23/2017 14427-DYQZOEA NAIL, 6 OR MORE 11/03/2016 95648-FBWRIKL NAIL, 6 OR MORE 05/28/2017 32110-QXUQMUA NAIL, 6 OR MORE 08/20/2017 07626-KWWGBFZ NAIL, 6 OR MORE 11/05/2017 35011-AJULFKX NAIL, 6 OR MORE 03/07/2018 26468-PHZDJFX NAIL, 6 OR MORE 10/31/2018 26851-ZSLPZXU NAIL, 6 OR MORE 05/26/2018 93914-SXJHMOZ NAIL, 6 OR MORE 08/04/2018 93352-DVECQXP NAIL, 6 OR MORE 04/18/2025 17468-XYEVXAZ NAIL, 6 OR MORE 07/10/2025 88458-Pftpvzbt Plate 03/07/2018 75016-Ophdsmye Plate 05/28/2017 62313-Uqomqljb Plate 11/05/2017 04280-Sxiezmdf Plate 08/20/2017 93673-Xfgcpnpb Plate 11/03/2016 35861-Oectyqeq Plate 02/23/2017 64767-Ujkvbkab Plate 08/05/2016 01009-Hhixqnog Plate 05/04/2016 27386-Fzaehxhz Plate 02/24/2016 61093-Uyhslupq Plate 08/15/2015 77089-Veamhlhi Plate 09/01/2013 35000-Uplkruoo Plate 06/13/2015 75755-Etrvcqdq Plate Each Additional 11/2014 51204- Debride <25 sq cm 04/18/2015 96705- Debride <25 sq cm 09/21/2013 09503 I&D ABSCESS- SIMPLE,SINGLE 015 92192 I&D ABSCESS- SIMPLE,SINGLE 013 07060 I&D ABSCESS- SIMPLE,SINGLE 017 77367-AXCE SKIN LESIONS, 2 TO 4 11/05/20 17 76511-AJTB SKIN LESIONS, 2 TO 4 11/03/20 16 32389-PJUG SKIN LESIONS, 2 TO 4 08/20/20 17 91649-WQTX SKIN LESIONS, 2 TO 4 05/04/20 16 87472-XREP SKIN LESIONS, 2 TO 4 08/05/20 16 34627-XCYA SKIN LESIONS, 2 TO 4 02/24/20 17 30782-NDPM SKIN LESIONS, 2 TO 4 05/28/20 17 96798-CHEL SKIN LESIONS, 2 TO 4 08/15/20 15 52810-QCJU SKIN LESIONS, 2 TO 4 02/24/20 16 90851-AHZX SKIN LESIONS, 2 TO 4 11/05/20 15 09610-WMOR SKIN LESIONS, 2 TO 4 04/04/20 15 37836-GCZF SKIN LESIONS, 2 TO 4 06/13/20 15 88451-NBIZ SKIN LESIONS, 2 TO 4 03/07/20 18 94667-SYIH SKIN LESIONS, 2 TO 4 05/26/20 18 10485-OTEH SKIN LESIONS, 2 TO 4 03/06/20 19 50301-FHYY SKIN LESIONS, 2 TO 4 06/07/20 19 32587-UGUT SKIN LESIONS, 2 TO 4 09/13/20 19 20979-JGXQ SKIN LESIONS, 2 TO 4 04/04/20 20 04632-TPCB SKIN LESIONS, 2 TO 4 07/08/20 20 55335-BICE SKIN LESIONS, 2 TO 4 10/21/20 20 28128-GCVW SKIN LESIONS, 2 TO 4 03/31/20 21 23764-VPHG SKIN LESIONS, 2 TO 4 07/08/20 21 88888-PNIB SKIN LESIONS, 2 TO 4 10/21/20 21 15766-AEKS SKIN LESIONS, 2 TO 4 07/10/20 25 77068-IAYP SKIN LESIONS, 2 TO 4 04/18/20 25 95059-YXLZ SKIN LESIONS, 2 TO 4 10/31/20 18 19193-WSHE SKIN LESIONS, 2 TO 4 08/04/20 18 71878-MELWMWEV OF HEMATOMA/FLUID 018 Next Appt Details Provider Name:Bessie Zamora estelita, 10/17/2025 11:15:00 AM, [address] [facility], [place], [address], Insurance Providers Payer Name Payer Address Payer Phone Subscriber Number Group Number Insured Name Patient Relationship to Insured Coverage Start Date Coverage End Date Medicare National Govt Svcs Inc [address] [place] [address] [id number] Pamela Cronin Self - patient is the insured 2 [employer] Blue Shield [address] [place] [address] [id number] Moy Cronin Spouse - patient is the spouse of the insured Medical (General) History Medical History History ICD Code chicken pox cholesterol Diabetic type ll high blood pressure measles mumps thyroid disorder Arthritis Surgical History Surgery Date(Month/Year) knee surgery, left 2010 cataract surgery bilateral 2016
== END 2025-09-13 10:36 | disposition home or self-care (01) ==
PROVIDERS: PCP Internal Medicine
DX: Z23 Encounter for immunization (principal)

== ENCOUNTER → 2025-09-13 10:10 | Outpatient (BNVA) | payer MEDICARE, SELFPAY | PROVIDERS: PCP Internal Medicine | DX: Z23 Encounter for immunization (principal) | CPT/HCPCS: 90471; 90656 ==